=== PATIENT | female | born 1935 | race African-American/Black ===

== ENCOUNTER → 2017-05-07 19:06 | Outpatient (CLI) | payer MEDICARE ==
[2011-03-14 18:30] VITALS: BMI 38.5
== END | disposition home or self-care (01) ==
LOC: D.SLEEP 19:06
DX: G47.33 Obstructive sleep apnea (adult) (pediatric) (principal)

== ENCOUNTER 2017-06-03 04:58 | Observation (INO) | payer MEDICARE ==
[~2017-06-03] VITALS: Ht 167.6 cm; Wt 108.9 kg
--- NOTE | ~2017-06-03 | HEMODYNAMI ---
PATIENT:ZOHREH DOE MEDICAL RECORD: [id number] : 39 LOCATION:[facility] D.2114 [facility] [id number] ADMISSION DATE: 06/03/17 Generatedon:06/03/201710:25 Patient name: ZOHREH DOE Patient #: [id number] : 1935 Date of study: 06/03/2017 Page: Of Hemodynamic Procedure Report Patient Data Patient Demographics Procedure consent was obtained First Name: ZOHREH Gender: Female Last Name: NADER : 1935 [facility] Initial: WALESKA Age: 82 year(s) Patient #: [id number] Race: Black SSN: [id number] Additional ID: [id number] Contact details [address]: [address] [place] [address] State: [place] City: [place] Zip code: [address] Past Medical History Allergies Allergen Reaction Date Comments Reported Other allergy 06/03/2017 penicillin, codeine, aspirin Admission Admission Data Admission Date: 06/03/2017 Admission Time: 6:30 Arrival Date: 06/03/2017 Arrival Time: 6:30 Admit Source: Other Insurance Payor: Medicare Room #: D.2114 Height (in.): 65.98 BSA: 2.09 (m2) Height (cm.): 167.6 BMI: 35.85 (kg/m2) Weight (lbs.): 222.01 Weight (kg.): 100.7 Lab Results Lab Result Date: 06/03/2017 Lab Result Time: 0:00 Biochemistry Name Units Result Min Max BUN mg/dl 19 --(----)*- 7 18 Creatinine mg/dl 0.9 --(-*--)-- 0.6 1.3 CBC Name Units Result Min Max Hemoglobin g/dl 13.8 --(*---)-- 13.5 17.5 Procedure Procedure Types Cath Procedure Diagnostic Procedure LHC [facility] w/Coronaries PCI Procedure Coronary Stent Initial Miscellaneous Procedures Moderate Sedation up to 15 minutes Procedure Description Procedure Date Procedure Date: 06/03/2017 Procedure Start Time: 10:06 Procedure End Time: 10:21 Procedure Staff Name Function Prasad Vargas MD Performing Physician Rosalind Marks RT Scrub Wilber Brown RN Nurse Sari Sierra RT Monitor Indication Angina Procedure Data Cath Procedure Fluoroscopy Diagnostic fluoroscopy Total fluoroscopy Time: 3.1 time: 3.1 min min Diagnostic fluoroscopy Total fluoroscopy dose: 642 dose: 642 mGy mGy Contrast Material Contrast Material Type Amount (ml) Isovue 300 90 Entry Location Entry Primary Successful Side Size Upsize Upsize Entry Closure Succes sful Closure Location (Fr) 1 (Fr) 2 (Fr) Remarks Device Remarks Femoral Right 5 Fr 6 Fr Exoseal artery Short Estimated blood loss: 10 ml Diagnostic catheters Device Type Used For End Catheter Placement Cordis 5Fr JL 4.0 Procedure Catheter (MP) Cordis 5Fr 3DRC Catheter Procedure (MP) Cordis 5Fr Pigtail Procedure Catheter (MP) Procedure Complications No complications Procedure Medications Medication Administration Route Dosage Oxygen NC 2 l/min Lidocaine 2% added to field 20 Heparin Flush Bag added to field 2 bags (1000units/500ml NS) 0.9% NaCl I.V. 100 ml/hr Fentanyl I.V. 50 mcg Versed I.V. 1 mg Fentanyl I.V. 50 mcg Versed I.V. 1 mg Heparin Bolus I.V. 4000 units Integrilin (Bolus I.V. 9 ml 2mg/ml) Integrilin (Bolus wasted 1 ml 2mg/ml) Plavix P.O. 600 mg Hemodynamics Rest BSA: 2.09 (m2) HGB: 13.8 (g/dl) O2 Consumption: Estimated: 188.73 (ml/min) O2 Co nsumption indexed: Estimated:90.3 (ml/min/m) Heart Rate: 71 (bpm) Pressure Samples Time Site Value (mmHg) Purpose Heart Use Rate(bpm) 10:11 LV 143/11,14 Snapshot 70 Gradients Valve Time Site Site Mean SEP/DFP Peak To Heart Use 1 2 (mmHg) (sec/min) Peak Rate (mmHg) (bpm) Aortic 10:12 LV AO 73 Snapshots Pre Cath Intra NCS Post Cath Vital Signs Time Heart Resp SPO2 NIBP (mmHg) Rhythm Pain Sedation Rate (ipm) (%) Status Level (bpm) 9:29:34 69 20 100 144/74(118) NSR 0 (11) 10(A) , No pain 9:33:59 71 20 99 150/77(123) NSR 0 (11) 10(A) , No pain 9:38:17 66 19 98 131/70(111) NSR 0 (11) 10(A) , No pain 9:42:33 67 17 97 129/68(101) NSR 0 (11) 10(A) , No pain 9:46:51 78 19 98 130/72(115) NSR 0 (11) 10(A) , No pain 9:51:11 66 19 98 130/66(105) NSR 0 (11) 10(A) , No pain 9:55:31 68 19 98 129/63(112) NSR 0 (11) 10(A) , No pain 9:59:49 69 17 98 126/71(106) NSR 0 (11) 10(A) , No pain 10:04:07 73 19 99 132/67(117) NSR 0 (11) 9(A) , No pain 10:08:25 67 19 99 122/67(105) NSR 0 (11) 9(A) , No pain 10:12:39 68 19 98 129/71(106) NSR 0 (11) 9(A) , No pain 10:16:53 69 16 97 118/64(97) NSR 0 (11) 9(A) , No pain 10:21:07 71 17 97 127/66(102) NSR 0 (11) 9(A) , No pain 10:23:47 69 16 96 116/65(102) NSR 0 (11) 9(A) , No pain Medications Time Medication Route Dose Verified Delivered Reason Notes Effectiveness by by 9:33:27 Oxygen NC 2 Prasad Buffie used for l/min 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 100 Prasad Buffie Per physician ml/hr [facility] M[facility] Brown RN, MD 10:03:51 Fentanyl I.V. 50 Prasad Merino for sedation mcg [facility] Moy Brown RN, MD 10:03:59 Versed I.V. 1 mg Prasad Gutiérrezie for sedation [facility] M[facility] Brown RN, MD 10:07:49 Fentanyl I.V. 50 Prasad Merino for sedation mcg [facility] Moy Brown RN, MD 10:07:52 Versed I.V. 1 mg Prasad Merino for sedation [facility] Brown RN, MD 10:12:25 Heparin Bolus I.V. 4000 Prasad Gutiérrezie for units [facility] Moy Brown RN anticoagulation 10:12:42 Integrilin I.V. 9 ml Prasad Gutiérrezie for (Bolus 2mg/ml) [facility] Brown RN antiplatelet therapy 10:20:01 Integrilin wasted 1 ml Prasad Gutiérrezie for (Bolus 2mg/ml) [facility] Brown RN antiplatelet MD therapy 10:21:06 Plavix P.O. 600 Prasad Merino for mg [facility] Moy Brown RN antiplatelet therapy Procedure Log Time Note 8:50:24 Wilber Brown RN sent for patient. Start room use. 8:55:06 Informed consent obtained and on chart 8:55:19 Arrival Date: 06/03/2017 6:30:00 AM 8:55:26 Insurance Payor : Medicare 8:55:27 Admit Source: Other 8:56:31 Lab Result : BUN 19 mg/dl 8:56:31 Lab Result : Hemoglobin 13.8 g/dl 8:56:31 Lab Result : Creatinine 0.9 mg/dl 8:56:37 Diagnostic Cath Status : Elective 8:57:19 Indication : Angina 8:57:25 Time tracking: Regular hours 8:57:29 Plan of Care:Hemodynamics will remain stable., Cardiac rhythm will remain stable., Comfort level will be maintained., Respiratory function will remain adequate., Patient/ family verbilizes understanding of procedure., Procedure tolerated without complication., Recovers from procedure without complications.. 9:24:21 Patient received from Med II to CCL 2 Alert and oriented. Tansferred to table in Supine position. 9:24:22 Warm blankets applied, and mike hugger turned on for patient comfort. 9:24:23 Correct patient and procedure confirmed by team. 9:24:24 ECG and BP/O2 sat monitors applied to patient. 9:24:25 Vital chart was started 9:24:31 Baseline sample Acquired. 9:24:37 Rhythm: sinus rhythm 9:24:39 Full Disclosure recording started 9:24:44 H&P Date Dictated: 06/03/2017 New H&P dictated by physician.. 9:24:46 Pre-procedure instructions explained to patient. 9:24:47 Pre-op teaching completed and patient verbalized understanding. 9:24:49 Family in waiting room. 9:24:51 Patient NPO since Midnight. 9:25:16 Patient allergic to Other allergypenicillin, codeine, aspirin 9:25:19 Is the patient allergic to Iodine/contrast media? No. 9:25:21 Was the patient premedicated? No 9:25:22 Is patient on blood thinner?No 9:25:23 Patient diabetic? Yes. 9:25:24 If diabetic: On Metformin? Yes 9:25:25 If on Metformin: Last Dose? 06/03/2017 9:25:31 Patient not . Patient is over age 55. 9:25:33 Previous problem with sedation/anesthesia? No ? 9:25:35 Snore? Yes 9:25:36 Sleep apnea? No 9:25:37 Deviated septum? No 9:25:38 Opens mouth fully? Yes 9:25:38 Sticks out tongue? Yes 9:25:42 Airway obstruction? Yes copd 9:25:45 Dentures? No ? 9:25:49 Pre procedure: right dorsailis pedis pulse 1+ Palpable, but thready & weak; easily obliterated 9:25:51 Pre procedure: left dorsailis pedis pulse 1+ Palpable, but thready & weak; easily obliterated 9:25:53 Patient pain scale 0/10 ?. 9:25:58 IV patent on arrival in right hand with 0.9% NaCl at O. 9:26:01 Lab results completed and on chart. 9:26:04 Right groin area was prepped with chlora-prep and draped in sterile fashion 9:26:05 Alarms reviewed by R. N. 9:26:05 Sharps counted by scrub and verified by R.N. 9:31:36 Baseline sample Acquired. 9:32:01 Physician paged 9:33:27 Oxygen 2 l/min NC was administered by Wilber Brown RN; used for procedure; 9:33:34 Lidocaine 2% 20ml vial added to field was administered by Prasad Vargas MD; for local anesthetic; 9:33:40 Heparin Flush Bag (1000units/500ml NS) 2 bags added to field was administered by Prasad Vargas MD; used for procedure; 9:33:50 0.9% NaCl 100 ml/hr I.V. was administered by Wilber Brown RN; Per physician; 9:42:52 Procedure type changed to Cath procedure, Diagnostic procedure, LHC, LHC w/Coronaries, PCI procedure, Coronary Stent Initial, Miscellaneous Procedures, Moderate Sedation up to 15 minutes 9:43:11 Patient Height : 167.6 cm 9:43:31 Patient Weight : 100.7 kg 9:46:58 Zero performed for pressure channel P1 9:47:04 Zero performed for pressure channel P1 9:47:18 Zero performed for pressure channel P1 10:03:27 Physician arrived 10:03:28 --------ALL STOP TIME OUT------ 10:03:28 Final Timeout: patient, procedure, and site verified with staff and physician. All members of the team are in agreement. 10:03:31 Right groin site verified by team. 10:03:36 Sedation plan: IV Moderate Sedation Versed, Fentanyl 10:03:44 Physical assessment completed. ASA score P 2 - A patient with mild systemic disease as per Prasad Vargas MD. 10:03:51 Fentanyl 50 mcg I.V. was administered by Wilber Brown RN; for sedation; 10:03:59 Versed 1 mg I.V. was administered by Wilber Brown RN; for sedation; 10:04:30 Use device set Femoral Dx 10:04:32 Acist Syringe opened to sterile field. 10:04:32 Bag Decanter opened to sterile field. 10:04:33 Medline Cath Pack opened to sterile field. 10:04:33 Terumo 5Fr [place] Sheath opened to sterile field. 10:04:33 St Adolfo 260cm J .035 wire opened to sterile field. 10:04:35 Acist Hand Control opened to sterile field. 10:04:35 Acist Manifold opened to sterile field. 10:04:36 Diagnostic Infinity 5Fr Multipack catheter opened to sterile field. 10:04:36 Tegaderm 4 x 4 opened to sterile field. 10:05:53 Procedure started. 10:06:02 Local anesthetic to right femoral artery with Lidocaine 2% by Prasad Vargas MD.INITIAL ACCESS ONLY 10:06:11 A 5 Fr sheath was inserted into the Right Femoral artery 10:07:39 A Cordis 5Fr JL 4.0 Catheter (MP) was advanced over the wire and used for Procedure. 10:07:44 LCA angiography performed. 10:07:49 Fentanyl 50 mcg I.V. was administered by Wilber Brown RN; for sedation; 10:07:52 Versed 1 mg I.V. was administered by Wilber Brown RN; for sedation; 10:09:38 Catheter removed. 10:09:45 A Cordis 5Fr 3DRC Catheter (MP) was advanced over the wire and used for Procedure. 10:11:00 RCA angiography performed. 10:11:04 Catheter removed. 10:11:11 A Cordis 5Fr Pigtail Catheter (MP) was advanced over the wire and used for Procedure. 10:12:05 Catheter removed. 10:12:10 EF : 55 % 10:12:25 Heparin Bolus 4000 units I.V. was administered by Wilber Brown RN; for anticoagulation; 10:12:35 Sheath upsized to a 6 Fr Short. 10:12:42 Integrilin (Bolus 2mg/ml) 9 ml I.V. was administered by Wilber Brown RN; for antiplatelet therapy; 10:12:48 6 Fr JL 4 guide catheter was inserted over the wire 10:12:52 ana wire advanced. 10:12:54 Terumo 6Fr [place] Sheath opened to sterile field. 10:13:00 Skinner Combined Locks 300cm 0.014 guide wire opened to sterile field. 10:13:01 LIA BasixCompak Inflation Kit opened to sterile field. 10:13:37 Medtronic Launcher 6Fr JL 4.0 SH guide catheter opened to sterile field. 10:13:45 Wire advanced across lesion. 10:13:54 Study PCI Site: [place] mLAD has 80% stenosis. 10:17:48 Inflation Number: 1 A Juan OTW 3.0 x 15 stent was prepped and advanced across the Mid LAD. The stent was deployed at 14 ELIZABETH for 0:29 (min:sec). 10:19:00 Cordis 6Fr Exoseal opened to sterile field. 10:19:36 Wire removed. 10:19:37 Guide catheter removed. 10:19:47 Sheath removed intact; hemostasis achieved with Exoseal to the Right Femoral artery. 10:19:49 Procedure ended.(Physican Out) 10:20:01 Integrilin (Bolus 2mg/ml) 1 ml wasted was administered by Wilber Brown RN; for antiplatelet therapy; 10:20:01 Fluoroscopy time 03.10 minutes. 10:20:07 Flurop Dose total: 642 10:20:07 Fluoroscopy dose: 642 mGy 10:20:13 Contrast amount:Isovue 300 90ml. 10:20:14 Sharps counted by scrub and verified by R.N. 10:20:17 Insertion/operative site no bleeding no hematoma. 10:20:21 Post right femoral artery:stable 10:20:24 Post Procedure Pulses reassessed and unchanged 10:20:29 Post-procedure physical assessment completed. ASA score P 2 - A patient with mild systemic disease as per Prasad Vargas MD. 10:20:33 Post procedure rhythm: unchanged. 10:20:36 Estimated blood loss: 10 ml 10:20:38 Post procedure instruction explained to patient.Patient verbalizes understanding. 10:20:46 Procedure and supply charges have been captured, reviewed, submitted and are correct. 10:21:06 Plavix 600 mg P.O. was administered by Wilber Brown RN; for antiplatelet therapy; 10:21:08 Procedure Complication : No complications 10:21:11 Vital chart was stopped 10:21:12 See physician's report for complete and final results. 10:21:14 Report given to Pre/Post Procedure Room. 10:21:19 Patient transfered to [facility] with Bed. 10:21:22 Procedure ended. 10:21:22 Full Disclosure recording stopped 10:21:26 End room use (Document Last) 10:21:38 ACC-PCI Only Patient was given prescriptions, or instructed by Prasad Vargas MD to start/continue the following medications upon discharge: Plavix Intervention Summary Intervention Notes Time ActionType Lesion and Equipment Action# Pressure Duration Attributes Used 10:17:48 Place stent Mid LAD [place] OTW 1 14 00:29 3.0 x 15 stent Device Usage Item Name Manufacture Quantity Catalog Hospital Part Current Minimal Lot# / Number Charge Number Stock Stock Serial# Code Acist Acist 1 07441 987275 684628 631755 20 Syringe Medical Systems Inc Bag Microtek 1 2002S 252445 83112 166781 5 Decanter Medical Inc. Medline Cardinal 1 [id number] 581424 44528 817572 5 Cath Pack Health Terumo 5Fr Terumo 1 [id number] 632768 875623 977356 [address] Adolfo 1 556009 115773 191084 198008 30 260cm J .035 wire Acist Hand Acist 1 70497 744533 467032 760664 5 Control Medical Systems Inc Acist Acist 1 55500 273645 959943 549282 5 Manifold Medical Systems Inc Diagnostic Cardinal 1 BP3346 592121 10603 186762 30 Infinity Health 5Fr Multipack catheter Tegaderm 4 3M 1 1626W 174825 677549 466825 5 x 4 Cordis 5Fr Cardinal 1 899813 5 JL 4.0 Health Catheter (MP) Cordis 5Fr Cardinal 1 703957 5 3DRC Health Catheter (MP) Cordis 5Fr Cardinal 1 713011 5 Pigtail Health Catheter (MP) Terumo 6Fr Terumo 1 [id number] 145981 715757 959444 40 [place] Sheath Skinner Skinner 1 [id number] 003560 344183 898041 1 Combined Locks Vascular 300cm 0.014 guide wire [facility] 1 [id number] 149881 351077 293481 15 [facility] Medical Inflation Kit Medtronic Medtronic 1 [id number] 259345 40774 308098 1 Launcher 6Fr JL 4.0 SH guide catheter [place] OTW Medtronic 1 [id number] 858092 747871 758212 5 [id number] 3.0 x 15 stent Cordis 6Fr Cardinal 1 EX600 578100 863362 641173 10 [facility] Docitt Signature Audit [place] Stage Time Signature Unsigned Intra-Procedure 06/03/2017 Sari Sierra 10:24:57 AM RT(R) Signatures Monitor : Sari Sierra Signature : RT Date : Time : [place] [id number] [place] [address]
[2017-06-03 05:37] LABS: BASOPHILS 0.3 % (0-2); EOSINOPHILS 1.2 % (0-7); HEMATOCRIT 41.7 % (36.0-48.0); HEMOGLOBIN 13.8 g/dL (12-16); IMMATURE GRANULOCYTES 0.1 % (0-5); MCH 31.6 pg (26.0-34.0); MCHC 33.1 g/dL (31.0-37.0); MCV 95.4 fL (80.0-100.0); MONOCYTES 7.6 % (2-11); NEUTROPHILS 62.8 % (40-80); PLATELET COUNT 238 10x3/uL (130-400); RBC 4.37 10x6/uL (4.00-5.40); RDW 14.7 % (11.5-14.5); WBC 7.5 10x3/uL (4.8-10.8)
[2017-06-03 05:58] LABS: ALBUMIN 3.2 g/dL (3.4-5.0); ALKALINE PHOSPHATASE 75 U/L (46-116); ALT (SGPT) 15 U/L (10-68); CALC OSMOLALITY 282 mosm/kg (275-300); CALCIUM 9.9 mg/dL (8.5-10.1); CARBON DIOXIDE 29.9 mmol/L (21.0-32.0); CHLORIDE - SERUM 102 mmol/L (98-107); CREATININE - SERUM 0.9 mg/dL (0.6-1.3); GLUCOSE 131 mg/dL (74-106); POTASSIUM - SERUM 4.1 mmol/L (3.5-5.1); PROTEIN - SERUM 7.2 g/dL (6.4-8.2); SODIUM 140 mmol/L (136-145); UREA NITROGEN 19 mg/dL (7-18); eGFR NON AFRICAN AMERICAN 64 mL/min (90-120)
[2017-06-03 06:09] LABS: CKMB 0.2 U/L (0.0-3.6); CREATINE KINASE 33 UL (21-215); TROPONIN-I < 0.017 ng/mL (0.000-0.060)
--- NOTE | 2017-06-03 07:07 | NUR ---
TRANSFER FROM ER BY W/C. GIDEONINTED TO ROOM. CALL LIGHT IN REACH. WILL CONT. PLAN OF CARE.
[2017-06-03] MEDS ORDERED: ASCORBIC ACID500 MG PO (07:56)
[2017-06-03] MEDS ORDERED: MAXZIDE 75/501 TAB PO (07:57)
[2017-06-03] MEDS ORDERED: VITAMIN D10000 UNI1 PO (07:57)
[2017-06-03] MEDS ORDERED: CALAN SR120 MG PO (07:58)
[2017-06-03] MEDS ORDERED: GLUCOPHAGE1000 MG PO (07:58)
[2017-06-03] MEDS ORDERED: METOPROLOL TART50 MG PO (07:59)
[2017-06-03] MEDS ORDERED: PEPCID20 MG PO (07:59)
[2017-06-03] MEDS ORDERED: GLIPIZIDE10 MG PO (07:59)
[2017-06-03] MEDS ORDERED: ZOCOR40 MG PO (07:59)
[2017-06-03 08:00] VITALS: BP 142/60
[2017-06-03] MEDS ORDERED: CALCIUM 600+D T1 TA1 PO (08:00)
[2017-06-03] MEDS ORDERED: VENTOLIN HFA18 GM INH (08:02)
[2017-06-03] MEDS ORDERED: ALBUTEROL2.5 MG/3 M INH (08:05)
[2017-06-03 08:07] VITALS: Ht 167.6 cm; Wt 108.9 kg
--- NOTE | 2017-06-03 09:20 | NUR ---
CONSENTS SIGNED. PRE-OPS GIVEN. 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
--- NOTE | 2017-06-03 10:54 | NUR ---
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 VS WNL. RIGHT GROIN STABE WITHOUT BLEEDING OR HEMATOMA NOTED. WILL ONITOR.
[2017-06-03 12:00] VITALS: BP 151/70
--- NOTE | 2017-06-03 14:43 | NUR ---
BED REST UP. GROIN STABLE.
[2017-06-03 16:00] VITALS: BP 110/51
[2017-06-03 16:28] LABS: CKMB 0.1 U/L (0.0-3.6); CREATINE KINASE 29 UL (21-215); TROPONIN-I < 0.017 ng/mL (0.000-0.060)
--- NOTE | 2017-06-03 19:02 | NUR ---
RECEIVED REPORT AND ASSUMED PT CARE FROM DAY SHIFT NURSE @ THIS TIME
[2017-06-03 20:08] VITALS: BP 146/58
[2017-06-04 01:09] VITALS: BP 139/55
[2017-06-04 04:00] VITALS: BP 125/53
[2017-06-04 08:00] VITALS: BP 124/78
[2017-06-04] MEDS ORDERED: PLAVIX75 MG PO (08:03)
[2017-06-04] MEDS ORDERED: BAYER CHEWABLE81 MG PO (08:05)
--- NOTE | 2017-06-04 09:56 | NUR ---
IV AND TELEMETRY DCD. DC PLANS GIVEN. UNDERSTANDING VOICED. ESCORTED TO CAR BY W/C.
--- NOTE | 2017-06-04 14:18 | CN ---
PATIENT NAME:ZOHREH DOE MEDICAL RECORD: [id number] : 39 LOCATION:D. D.2114 ADMIT DATE: 06/03/17 ACCOUNT: [id number] CONSULTING PHYSICIAN: SUSANA STEELE MD REFERRING PHYSICIAN: VIPIN PLAZA MD DATE OF CONSULTATION: 06/03/2017 HISTORY OF PRESENT ILLNESS: An 82-year-old female with a known history of coronary artery disease, had a history of hypertension, dyslipidemia, admitted with chest pain radiating to the throat, some nausea onset nocturnally, tried Gaviscon without relief enzymes negative. At this point, we are asked to see her concerning her cardiovascular status. PAST MEDICAL HISTORY: Includes: 1. History of hypertension. 2. Hyperlipidemia. 3. Diabetes mellitus. 4. Gastroesophageal reflux disease. 5. Osteoarthritis, status post knee replacement. ALLERGIES: PENICILLIN, CODEINE AND ASPIRIN. MEDICATIONS: Typically include metoprolol 50 b.i.d., simvastatin 40 q. day, verapamil 120 q. day, Maxzide 75/50 q. day, Pepcid 20 b.i.d., glipizide 10 b.i.d., metformin 1 g b.i.d. SOCIAL HISTORY: Lives here in [place]. She is a nonsmoker, nondrinker. She takes care of her ADLs. No set exercise programs since her knee replacement. REVIEW OF SYSTEMS: The patient reports easy bruising but reports no swollen glands. The patient reports no fever, no night sweats, no significant weight gain, no significant weight loss. No significant exercise tolerance. The patient reports no dry eyes, no irritation, no vision change. Patient reports no difficulty hearing and no ear pain. Patient reports no frequent nose bleeds or nose and sinus problems. Patient reports on arm pain on exertion. No shortness of breath while lying down. No history of heart murmur. Patient reports no cough, no wheezing or coughing up blood. Patient reports no abdominal pain, no vomiting. Normal appetite. No diarrhea and not vomiting blood. No nausea and no constipation. Patient reports no incontinence. No difficulty urinating. No hematuria. No increased frequency. Patient reports no muscle aches. No weakness, no arthralgias, no back pain. No swelling of the extremities. Patient reports no abnormal mole, no jaundice, no rashes. Reports no loss of consciousness. No weakness and no numbness. No seizures, dizziness, or headaches. The patient reports no depression, no sleep disturbance, feeling safe in a relationship and no alcohol abuse. Patient reports on fatigue. Reports no runny nose or sinus pressure. No itching, no hives, and no frequent sneezing. PHYSICAL EXAMINATION: GENERAL: Pleasant female, in no acute distress. VITAL SIGNS: 142/60, pulse 70 and regular. HEENT: Normocephalic, atraumatic. NECK: No JVD or bruit. HEART: Regular. CONSULT REPORT [id number] ZOHREH DOE LUNGS: Lung johnson clear. ABDOMEN: Soft and nontender. EXTREMITIES: Pulse well preserved, 2+ with no edema. NEUROLOGIC: Grossly intact. IMPRESSION: Acute coronary syndrome, unresponsive to Gaviscon. We will plan for diagnostic angiography, intervention based on above. TRANSINT:[id number] Voice Confirmation ID: [id number] DOCUMENT ID: [id number] SUASNA STEELE MD at 1418 CC: [id number] DICTATION DATE: 06/03/17845 PLUMBING ASSEMBLER: 06/03/17 1255 DIS IN 06/04/17 [facility] [address] [place] [address]
--- NOTE | 2017-06-04 14:18 | OP ---
PATIENT NAME: ZOHREH DOE MEDICAL RECORD: [id number] :39 LOCATION:D.M2 D.2114 ADMISSION DATE:06/03/17 SURGEON: SUSANA STEELE MD DATE OF OPERATION: 06/03/2017 PROCEDURE: Left heart catheterization, selective coronary angiography, right femoral artery approach. CATHETERS: A 5-Omani sheath, 5/4 left and right René, 5/4 pig. The procedure was well tolerated and the patient returned to the gil. Sheath was removed. ExoSeal device placed. FINDINGS: Left ventriculography in 30-degree CRUZ view: Normal wall motion, normal systolic function. CORONARY ANATOMY. LEFT MAIN: Left main is free of disease. LAD: Has a tight 80% stenosis, takeoff of the first diagonal. CIRCUMFLEX: Circumflex is a large vessel, free of disease. RIGHT CORONARY ARTERY: Again, is codominant system, large right, free of disease. IMPRESSION: Single-vessel disease involving left anterior descending. PLAN: Intervention of this vessel momentarily. DESCRIPTION OF PROCEDURE: A 5-Omani sheath was changed for a 6-Omani sheath. A JL4 guiding catheter provided excellent guide catheter support. A 300 cm Engelhard XT wire was placed across the occluded LAD down to distal portion of this vessel. It was followed by a 3.0 x 15 mm Omniflex drug-eluting stent up to 14 atmospheres. Final angiography shows excellent resolution of 80% stenosis, no significant residual. MATT flow was 3 throughout the procedure. Plavix was loaded in the lab. Sheath closed with ExoSeal device. TRANSINT:[id number] Voice Confirmation ID: [id number] DOCUMENT ID: [id number] SUSANA STEELE MD at 1418 CC: [id number] DICTATION DATE: 06/03/17 1025 DISPLAY DEPARTMENT MANAGER: 06/03/17 1608 DIS IN 06/04/17 [place] [id number] [place] [address]
== END 2017-06-04 09:57 | disposition home or self-care (01) ==
LOC: D.ER 04:58 → OBSVTIME 06:30 → D.M2 06:30
PROVIDERS: Emergency Medicine; ADMIT Family Medicine
DX: I25.110 Atherosclerotic heart disease of native coronary artery with unstable angina pectoris (principal); I10 Essential (primary) hypertension; E78.5 Hyperlipidemia, unspecified; E11.9 Type 2 diabetes mellitus without complications; K21.9 Gastro-esophageal reflux disease without esophagitis
CPT/HCPCS: 93458; C9600

== ENCOUNTER 2017-10-23 07:29 | Emergency (ER) | payer MEDICARE ==
[2017-06-03 08:07] VITALS: BMI 38.7
[~2017-10-23 07:29] MED LIST: ALBUTEROL2.5 MG/3 M INH; ASCORBIC ACID500 MG PO; BAYER CHEWABLE81 MG PO; CALAN SR120 MG PO; CALCIUM 600+D T1 TA1 PO; GLIPIZIDE10 MG PO; GLUCOPHAGE1000 MG PO; MAXZIDE 75/501 TAB PO; METOPROLOL TART50 MG PO; PEPCID20 MG PO; PLAVIX75 MG PO; VENTOLIN HFA18 GM INH; VITAMIN D10000 UNI1 PO; ZOCOR40 MG PO
[2017-10-23 08:17] LABS: BASOPHILS 0.1 % (0-2); EOSINOPHILS 1.9 % (0-7); HEMATOCRIT 33.4 % (36.0-48.0); HEMOGLOBIN 10.9 g/dL (12-16); IMMATURE GRANULOCYTES 0.1 % (0-5); LYMPHOCYTES 9.2 % (15-50); MCH 30.3 pg (26.0-34.0); MCHC 32.6 g/dL (31.0-37.0); MCV 92.8 fL (80.0-100.0); MEAN PLATELET VOLUME 9.1 fL (7.4-10.4); MONOCYTES 11.5 % (2-11); NEUTROPHILS 77.2 % (40-80); PLATELET COUNT 263 10x3/uL (130-400); RDW 15.8 % (11.5-14.5); WBC 8.5 10x3/uL (4.8-10.8)
[2017-10-23 08:24] LABS: ALBUMIN 2.9 g/dL (3.4-5.0); ANION GAP 14.1 mmol/L (8-16); BILIRUBIN - TOTAL 0.33 mg/dL (0.2-1.3); CALCIUM 9.5 mg/dL (8.5-10.1); CARBON DIOXIDE 26.3 mmol/L (21.0-32.0); CREATININE - SERUM 0.9 mg/dL (0.6-1.3); MAGNESIUM - SERUM 1.9 mg/dL (1.8-2.4); POTASSIUM - SERUM 4.4 mmol/L (3.5-5.1); PROTEIN - SERUM 6.9 g/dL (6.4-8.2)
== END 2017-10-23 09:20 | disposition home or self-care (01) ==
LOC: D.ER 07:29
PROVIDERS: Emergency Medicine
DX: B34.9 Viral infection, unspecified (principal); J11.1 Influenza due to unidentified influenza virus with other respiratory manifestations; D64.9 Anemia, unspecified

== ENCOUNTER 2019-09-09 13:02 | Outpatient (CLI) | payer MEDICARE ==
[2017-06-03 08:07] VITALS: BMI 38.7
--- NOTE | ~2019-09-09 | HEMODYNAMI ---
PATIENT:ZOHREH DOE MEDICAL RECORD: [id number] : 39 LOCATION:[facility] ADMISSION DATE: 09/09/19 Generatedon:09/09/201913:54 Patient name: ZOHREH DOE Patient #: [id number] : 1935 Date of study: 09/09/2019 Page: Of Hemodynamic Procedure Report Patient Data Patient Demographics Procedure consent was obtained First Name: ZOHREH Gender: Female Last Name: NADER : 1935 [facility] Initial: WALESKA Age: 84 year(s) Patient #: [id number] Race: Black SSN: [id number] Additional ID: [id number] Contact details [address]: [address] [place] [address] State: [place] City: [place] Zip code: [address] Past Medical History Allergies Allergen Reaction Date Comments Reported Other allergy 06/03/2017 penicillin, codeine, aspirin Other allergy 09/09/2019 codeine, pcn Admission Admission Data Admission Date: 09/09/2019 Admission Time: 13:02 Arrival Date: 09/09/2019 Arrival Time: 0:00 Admit Source: Other Insurance Payor: Medicaid, Medicare [facility] #: [id number] Height (in.): 66 BSA: 2.11 (m2) Height (cm.): 167.64 BMI: 36.48 (kg/m2) Weight (lbs.): 226 Weight (kg.): 102.51 Lab Results Lab Result Date: 09/09/2019 Lab Result Time: 0:00 Biochemistry Name Units Result Min Max BUN mg/dl 14 --(--*-)-- 7 18 Creatinine mg/dl 1 --(--*-)-- 0.6 1.3 eGFR ml/min 67.02611 *-(----)-- 90 120 AM Procedure Procedure Types Cath Procedure Diagnostic Procedure LHC LH w/Coronaries Procedure Description Procedure Date Procedure Date: 09/09/2019 Procedure Start Time: 13:40 Procedure End Time: 13:49 Procedure Staff Name Function Prasad Melendez MD Performing Physician Greg Pichardo RT Fiberglass Roller Jose Jensen RN Nurse Greg Pichardo RT Scrub Sari Sierra RT Monitor Procedure Data Cath Procedure Fluoroscopy Diagnostic fluoroscopy Total fluoroscopy Time: 0.9 time: 0.9 min min Diagnostic fluoroscopy Total fluoroscopy dose: 0.9 dose: 0.9 mGy mGy Contrast Material Contrast Material Type Amount (ml) Isovue 300 0 Entry Location Entry Primary Successful Side Size Upsize Upsize Entry Closure Succes sful Closure Location (Fr) 1 (Fr) 2 (Fr) Remarks Device Remarks Femoral Right 5 Fr Exoseal artery Estimated blood loss: 10 ml Diagnostic catheters Device Type Used For End Catheter Placement MULTIPACK JL 4.0 5Fr Procedure catheter MULTIPACK 3DRC 5Fr Procedure catheter MULTIPACK Pigtail 5 Fr Procedure catheter Procedure Complications No complications Procedure Medications Medication Administration Route Dosage 0.9% NaCl I.V. 100 ml/hr Oxygen etCO2 Nasal cannula 2 l/min Heparin Flush Bag added to field 2 bags (1000units/500ml NS) Lidocaine 2% added to field 20 Versed I.V. 0.5 mg Fentanyl I.V. 25 mcg Hemodynamics Rest BSA: 2.11 (m2) O2 Consumption: Estimated: 186.16 (ml/min) O2 Consumption indexed : Estimated:88.23 (ml/min/m) Heart Rate: 67 (bpm) Pressure Samples Time Site Value (mmHg) Purpose Heart Use Rate(bpm) 13:46 LV 164/9,13 Snapshot 69 Gradients Valve Time Site Site Mean SEP/DFP Peak To Heart Use 1 2 (mmHg) (sec/min) Peak Rate (mmHg) (bpm) Aortic 13:46 LV AO 67 Snapshots Pre Cath Intra NCS Post Cath Vital Signs Time Heart Resp SPO2 etCO2 NIBP (mmHg) Rhythm Pain Sedation Rate (ipm) (%) (mmHg) Status Level (bpm) 13:25:59 62 14 99 0 141/64(115) NSR 0 (11) 10(A) , No pain 13:30:21 61 21 99 0 136/66(110) NSR 0 (11) 10(A) , No pain 13:34:38 64 20 97 0 123/66(102) NSR 0 (11) 10(A) , No pain 13:38:58 61 20 97 41.2 129/64(104) NSR 0 (11) 10(A) , No pain 13:43:20 63 20 98 43.4 134/62(108) NSR 0 (11) 9(A) , No pain 13:47:44 67 20 98 44.2 139/65(106) NSR 0 (11) 9(A) , No pain Medications Time Medication Route Dose Verified Delivered Reason Notes Eff ectiveness by by 13:31:49 0.9% NaCl I.V. 100 Jose Jose Per ml/hr Camila Jensen physician RN RN 13:32:01 Oxygen etCO2 2 Jose Jose for low 02 Nasal l/min Lorigan Lorigan sats cannula RN RN 13:32:12 Heparin Flush added 2 Jose Jose used for Bag to bags Lorigan Lorigan procedure (1000units/500ml field RN RN NS) 13:32:23 Lidocaine 2% added 20ml Jose Jose for local to vial Lorigan Lorigan anesthetic field RN RN 13:40:37 Versed I.V. 0.5 Jose Jose for mg Lorigan Lorigan sedation RN RN 13:40:48 Fentanyl I.V. 25 Jose Jose for mcg Lorigan Lorigan sedation RN coal mill operator Log Time Note 13:20:26 Admit Source: Other 13:20:30 Arrival Date: 09/09/2019 12:00:00 AM 13:20:49 Insurance Payor : Medicare, Medicaid 13:20:55 Patient Height : 66 inches 13:21:01 Patient Weight : 226 lbs 13:23:13 Lab Result : BUN 14 mg/dl 13:23:13 Lab Result : eGFR AM 67.67808 ml/min 13:23:13 Lab Result : Creatinine 1 mg/dl 13:23:25 Diagnostic Cath Status : Elective 13:24:02 Greg LUGO(R) sent for patient. Start room use. 13:24:03 ACC Patient presents with Stable Angina CCS Anginal Class 2--Slight limitation of ordinary activity. 13:24:12 Procedure Status Elective Heart Cath (OP). 13:24:21 Time tracking: Regular hours (M-F 7:00 - 5:00) 13:24:27 Plan of Care:Hemodynamics will remain stable., Cardiac rhythm will remain stable., Comfort level will be maintained., Respiratory function will remain adequate., Patient/ family verbilizes understanding of procedure., Procedure tolerated without complication., Recovers from procedure without complications.. 13:24:34 Patient received from Pre/Post Procedure Room to CCL 1 Alert and oriented. Tansferred to table in Supine position. 13:24:37 Signed procedure consent form obtained from patient. 13:24:39 Warm blankets applied, and mike hugger turned on for patient comfort. 13:24:40 Correct patient and procedure confirmed by team. 13:24:41 ECG and BP/O2 sat monitors applied to patient. 13:24:43 Vital chart was started 13:24:47 Baseline sample Acquired. 13:24:53 Rhythm: sinus rhythm 13:24:57 Full Disclosure recording started 13::31 H&P Date Dictated: 08/28/2019 Within 30 days and on chart., H&P Addendum completed by physician on day of procedure. (MUST COMPLETE FOR ALL OUTPATIENTS). 13:26:34 Pre-procedure instructions explained to patient. 13:26:36 Family in waiting room. 13:26:58 Patient allergic to Other allergycodeine, pcn 13:27:05 Is the patient allergic to Iodine/contrast media? No. 13:27:07 Was the patient premedicated? Yes 13:27:33 Is patient on blood thinner?No 13:27:38 Patient diabetic? Yes. 13:27:39 If diabetic: On Metformin? Yes 13:27:41 If on Metformin: Last Dose? 09/09/2019 13:27:47 Snore? Yes 13:27:50 Sleep apnea? No 13:27:56 Dentures? Yes in tight 13:28:00 Patient pain scale 0/10 ?. 13:28:47 Stress Test: no; N/A ? 13:28:51 Right groin area was prepped with chlora-prep and draped in sterile fashion 13:28:53 Alarms reviewed by R. N. 13:28:54 Sharps counted by scrub and verified by R.N. 13:28:55 Physician paged 13:28:56 Physician arrived 13:31:06 2) 60-89 Mildly reduced kidney function, and other findings (as for stage 1) point to kidney disease. 13:31:49 0.9% NaCl 100 ml/hr I.V. was administered by Jose Jensen RN; Per physician; Verbal order read back and verified. 13:32:01 Oxygen 2 l/min etCO2 Nasal cannula was administered by Jose Jensen RN; for low 02 sats; Verbal order read back and verified. 13:32:12 Heparin Flush Bag (1000units/500ml NS) 2 bags added to field was administered by Jose Jensen RN; used for procedure; Verbal order read back and verified. 13:32:23 Lidocaine 2% 20ml vial added to field was administered by Jose Jensen RN; for local anesthetic; Verbal order read back and verified. 13:33:19 Use device set Femoral Dx 13:33:20 ACIST Syringe (89561) opened to sterile field. 13:33:21 Bag Decanter (2002S) opened to sterile field. 13:33:21 Medline Cath Pack ([id number]) opened to sterile field. 13:33:22 ACIST Hand Control (78424) opened to sterile field. 13:33:23 ACIST Manifold (30205) opened to sterile field. 13:33:24 DIAGNOSTIC Multipack 5Fr catheter set (MX0044) opened to sterile field. 13:33:27 SHEATH 5FR [place] (WRF724) opened to sterile field. 13:33:28 EMERALD Guide Wire (286-408) opened to sterile field. 13:39:25 --------ALL STOP TIME OUT------ 13:39:25 Final Timeout: patient, procedure, and site verified with staff and physician. All members of the team are in agreement. 13:39:28 Right groin site verified by team. 13:39:32 Fire Safety Assessment: A--An alcohol-based skin anteseptic being used preoperatively., C--Open oxygen or nitrous oxide is being used., D--An ESU, laser, or fiber-optic light is being used. 13:39:36 Physical assessment completed. ASA score P 3 - A patient with severe systemic disease as per Prasad Melendez MD. 13:39:40 Maximum allowable contrast dose (3.7 X eGFR X 0.75)188 ml. 13:39:45 Sedation plan: IV Moderate Sedation Medication:Versed, Fentanyl 13:40:05 Procedure started. 13:40:27 Local anesthetic to right femoral artery with Lidocaine 2% by Prasad Melendez MD.INITIAL ACCESS ONLY 13:40:36 A 5 Fr sheath was inserted into the Right Femoral artery 13:40:37 Versed 0.5 mg I.V. was administered by Jose eJnsen RN; for sedation; Verbal order read back and verified. 13:40:48 Fentanyl 25 mcg I.V. was administered by Jose Jensen RN; for sedation; Verbal order read back and verified. 13:42:02 A MULTIPACK JL 4.0 5Fr catheter was advanced over the wire and used for Procedure. 13:42:08 LCA angiography performed. 13:44:02 Catheter removed. 13:44:11 A MULTIPACK 3DRC 5Fr catheter was advanced over the wire and used for Procedure. 13:44:16 RCA angiography performed. 13:44:37 Catheter removed. 13:45:15 A MULTIPACK Pigtail 5 Fr catheter was advanced over the wire and used for Procedure. 13:45:23 Zero performed for pressure channel P1 13:45:36 LV angiography performed. 13:45:39 LV gram done using CRUZ 13:46:33 EF : 55 % 13:46:35 Catheter removed. 13:46:38 EXOSEAL 5Fr (EX500) opened to sterile field. 13:46:39 Tegaderm 4 x 4 (1626W) opened to sterile field. 13:46:58 Sheath removed intact; hemostasis achieved with Exoseal to the Right Femoral artery. 13:47:00 Procedure ended.(Physican Out) 13:47:17 Fluoroscopy time 00.90 minutes. 13:47:56 Fluoroscopy dose: 0.9 mGy 13:47:56 Flurop Dose total: 0.9 13:48:01 Dose Area Product 322 mGy/cm. 13:48:16 Contrast amount:Isovue 300 0ml. 13:48:19 Maximum allowable dose exceeded? No. 13:48:21 Sharps counted by scrub and verified by R.N. 13:48:23 Insertion/operative site no bleeding no hematoma. 13:48:31 Post-op/insertion site Right Femoral artery dressed using a 4 x 4 and Tegaderm. 13:48:35 Post right femoral artery:stable 13:48:37 Post Procedure Pulses reassessed and unchanged 13:48:42 Post-procedure physical assessment completed. ASA score P 2 - A patient with mild systemic disease as per Prasad Melendez MD. 13:48:45 Post procedure rhythm: unchanged. 13:48:49 Estimated blood loss: 10 ml 13:48:51 Post procedure instruction explained to patient.Patient verbalizes understanding. 13:48:57 Procedure and supply charges have been captured, reviewed, submitted and are correct. 13:49:20 Procedure Complication : No complications 13:49:23 Vital chart was stopped 13:49:25 [facility] Findings: mild to moderate CAD (<70%) 13:49:30 Operative report dictated upon procedure completion. 13:49:31 See physician's report for complete and final results. 13:49:33 Report given to Pre/Post Procedure Room. 13:49:37 Patient transfered to Pre/Post Procedure Room with Stretcher. 13:49:40 Procedure ended. 13:49:40 Full Disclosure recording stopped 13:49:45 End room use (Document Last) 13:50:47 End room use (Document Last) 13:51:12 End room use (Document Last) Device Usage Item Name Manufacture Quantity Catalog Hospital Part Current Minimal L ot# / Number Charge Number Stock Stock Serial# Code ACIST Acist 1 74814 373298 659833 633204 20 Syringe Medical (63217) Systems Inc Bag Microtek 1 776827 45613 187659 5 Decanter Medical Inc. () Medline Medline 1 [id number] 288720 69134 113066 5 Cath Pack ([id number]) ACIST Hand Acist 1 02050 387242 266296 655868 5 Control Medical (84915) Systems Inc ACIST Acist 1 42077 684246 641034 125819 5 Manifold Medical (11045) Systems Inc DIAGNOSTIC Cardinal 1 MG7823 674223 95490 097336 30 Multipack Health 5Fr catheter set (DU0905) SHEATH 5FR Terumo 1 JMY217 991855 499481 624908 5 [place] (BJT107) EMERALD Cardinal 1 502-455 839504 396560 520055 5 Guide Wire Health (502-664) MULTIPACK Cardinal 1 696721 5 JL 4.0 5Fr Health catheter MULTIPACK Cardinal 1 904972 5 3DRC 5Fr Health catheter MULTIPACK Cardinal 1 526490 5 Pigtail 5 Health Fr catheter EXOSEAL 5Fr Cardinal 1 EX500 279660 427919 864076 10 (EX500) Health Tegaderm 4 3M 1 1626W 767062 740295 671520 5 x 4 (1626W) Signature Audit [place] Stage Time Signature Unsigned Intra-Procedure 09/09/2019 Sari Sierra 1:50:47 PM RT(R) Intra-Procedure 09/09/2019 Jose 1:51:12 PM Camila BETH Intra-Procedure 09/09/2019 Prasad Crespo 1:54:36 PM Moy YA [facility] [address] [place] [address]
--- NOTE | ~2019-09-09 | OP ---
PATIENT NAME: ZOHREH DOE MEDICAL RECORD: [id number] :[birth year] LOCATION:D.CAT ADMISSION DATE: SURGEON: SUSANA STEELE MD DATE OF OPERATION: 09/09/2019 PROCEDURES: Left heart cath, selective coronary angiography, right femoral artery approach. CATHETERS: A 5-Croatian sheath, 5/4 left and right René, 5/4 pig. The procedure was well tolerated. The patient was returned to the gil. Sheath removed and ExoSeal device placed. FINDINGS: Left ventriculography in 30-degree CRUZ view: Normal wall motion, normal systolic function. CORONARY ANATOMY: LEFT MAIN: Left main is free of disease. LAD: Free of disease. The previously placed stent is widely patent. CIRCUMFLEX: Free of disease. RIGHT CORONARY ARTERY: Dominant artery, gives rise to PDA, free of disease. IMPRESSION: Widely patent stent, no progression of emmonak disease, LV function remains normal. TRANSINT:[id number] Voice Confirmation ID: [id number] DOCUMENT ID: [id number] SUSANA STEELE MD CC: [id number] DICTATION DATE: 09/09/19 1359 SOFTWARE ENGINEERING ANALYST: 09/09/19 1830 DEP CLI 09/09/19 [facility] [address] [place] [id number]
[2019-09-09 12:57] LABS: CALCIUM 10.1 mg/dL (8.5-10.1); CARBON DIOXIDE 27.9 mmol/L (21.0-32.0); CHOL - HDL RATIO 2.7 ratio (2.3-4.1); LDL-HDL RATIO 1.1 ratio (1.5-3.5)
[2019-09-09 13:00] LABS: POTASSIUM - SERUM 4.9 mmol/L (3.5-5.1)
[2019-09-09 13:09] LABS: HEMATOCRIT 39.8 % (36.0-48.0); HEMOGLOBIN 13.6 g/dL (12-16); LYMPHOCYTES 29.7 % (15-50); MCH 31.2 pg (26.0-34.0); MCHC 34.2 g/dL (31.0-37.0); MCV 91.3 fL (80.0-100.0); MEAN PLATELET VOLUME 9.4 fL (7.4-10.4); NEUTROPHILS 64.3 % (40-80); PLATELET COUNT 264 10x3/uL (130-400); RBC 4.36 10x6/uL (4.00-5.40); RDW 15.2 % (11.5-14.5); WBC 6.4 10x3/uL (4.8-10.8)
[2019-09-09] MEDS ORDERED: XALATAN 0.0052.5 ML EACH EYE (13:40)
[2019-09-09] MEDS ORDERED: OMEGA-3100 MG PO (13:40)
--- NOTE | 2019-09-09 14:04 | NUR ---
PT ARRIVED BY STRETCHER. PLACED ON MONITORS. ASSESSMENT COMPLETED. FAMILY AT BEDSIDE. DR. STEELE ROUNDED AND SPOKE WITH PT'S FAMILY.
--- NOTE | 2019-09-09 14:20 | NUR ---
RIGHT GROIN DRESSING C/D/I. NO S/S OF HEMATOMA NOTED. CALL LIGHT WITHIN REACH. FAMILY AT BEDSIDE. NO NEEDS AT THIS TIME. PT RESTING COMFORTABLY.
--- NOTE | 2019-09-09 14:50 | NUR ---
RIGHT GROIN DRESSING C/D/I. NO S/S OF HEMATOMA NOTED. CALL LIGHT WITHIN REACH. FAMILY AT BEDSIDE. VSS.
--- NOTE | 2019-09-09 15:30 | NUR ---
HEAD OF BED INC TO 30 DEGREES. TOLERATED WELL. VSS. RIGHT GROIN DRESSING C/D/I. NO S/S OF HEMATOMA NOTED. CALL LIGHT WITHIN REACH. PT DENIES NAUSEA/PAIN AT THIS TIME. SET UP WITH SANDWICH TRAY AND DRINK.
--- NOTE | 2019-09-09 15:45 | NUR ---
HEAD OF BED INC TO 30 DEGREES. RIGHT GROIN DRESSING C/D/I. NO S/S OF HEMATOMA NOTED. CALL LIGHT WITHIN REACH. FAMILY AT BEDSIDE. PT SET UP WITH DRINK AND SANDWICH TRAY. DENIES NAUSEA/PAIN AT THIS TIME.
--- NOTE | 2019-09-09 16:15 | NUR ---
PIV D/C'D WITH CATH TIP INTACT. TOLERATED WELL. RIGHT GROIN DRESSING C/D/I. NO S/S OF HEMATOMA NOTED. VSS. PT INSTRUCTED TO GET UP AND DRESSED. FAMILY AT BEDSIDE TO ASSIST. CALL LIGHT WITHIN REACH. PT INSTRUCTED TO CALL IF ASSISTANCE NEEDED.
--- NOTE | 2019-09-09 16:40 | NUR ---
DISCUSSED DISCHARGE INSTRUCTIONS WITH PT AND PT'S FAMILY. THEY VOICED UNDERSTANDING. PT AMUBLATED TO RESTROOM. VOIDED WITHOUT DIFFICULTY.
--- NOTE | 2019-09-09 16:45 | NUR ---
PT TAKEN OUT TO VEHICLE BY WHEELCHAIR. NO S/S OF DISTRESS NOTED. ALL BELONGINGS AND PAPERWORK IN HAND.
== END 2019-09-09 16:45 | disposition home or self-care (01) ==
LOC: D.CATH 13:02
PROVIDERS: ATTEND Internal Medicine Interventional Cardiology
DX: I25.119 Atherosclerotic heart disease of native coronary artery with unspecified angina pectoris (principal)

== ENCOUNTER → 2019-11-06 09:38 | Outpatient (CLI) | payer MEDICARE ==
[2017-06-03 08:07] VITALS: BMI 38.7
--- NOTE | ~2019-11-06 | EC ---
PATIENT:ZOHREH DOE DATE OF SERVICE: 11/06/19 SEX: F MEDICAL RECORD: [id number] DATE OF : [birth year] LOCATION:D.[facility] AGE OF PATIENT: 84 ADMISSION DATE: 11/06/19 REFERRING PHYSICIAN: INTERPRETING PHYSICIAN: SUSANA STEELE MD ECHOCARDIOGRAM REPORT ECHO CHARGES 4 ECHO COMPLETE Date: 11/06/19 CLINICAL DIAGNOSIS: ANGINA H/O CAD/HTN ECHOCARDIOGRAPHIC MEASUREMENTS (adult normal given) AC root (d.<3.7cm) 3.4 cm LV Septum d (<1.2 cm> 1.2 cm Valve Excursion 1.7 cm LV Septum (systole) 1.5 cm Left Atria (s.<4.0cm> 3.6 cm LVPW d(<1.2cm) 1.2 cm RV (d.<2.3cm) 2.7 cm LVPW (sytole) 1.8 cm LV diastole(<5.6CM) 4.8 cm MV E-F(>70mm/sec) cm LV systole 3.0 cm LVOT Diameter 2.0 cm MV exc.(>10mm) cm Est.ejection fraction (50-75%) % DOPPLER: LVIT cm/sec A 57.0 cm/sec E 43.0 cm/sec LA cm/sec RVSP 21.0 mmHg LVOT 98.0 cm/sec AOP1/2T m/s Asc. Ao 103 cm/sec RVOT 66.0 cm/sec RA cm/sec PA 89.0 cm/sec AV Gradient Peak 4.3 mmHg AV Mean 2.2 mmHg AV Area 2.8 cm MV Gradient Peak 4.3 mmHg MV Mean 1.4 mmHg MV Area cm COMMENTS: OP - HC Band Saw Operator: 1 VIVEK REMSEN Gas Pumper: 3 Dr. Vargas TAPE# PACS Pericardial Effusion N DATE OF SERVICE: Adequate 2D, color flow imaging, spectral Doppler, and M-Mode. Borderline LVH. LV internal dimensions are normal. Wall motion is normal. EF is greater than or equal to 55%. Aortic valve is tricuspid. No evidence of stenosis by Doppler interrogation. Left atrium is normal at 3.6 cm. Mitral valve shows no prolapse. Trace MR. Right-sided chambers grossly normal. Trace TR. ECHOCARDIOGRAM REPORT [id number] ZOHREH DOE TRANSINT:[id number] Voice Confirmation ID: [id number] DOCUMENT ID: [id number] SUSANA STEELE MD CC: [id number] DICTATION DATE: 11/09/19 1315 UTILITY WORKER PRODUCTION: 11/09/19 1528 [facility] CLI 11/06/19 [place] [id number] [place] [id number]
[~2019-11-06 09:38] MED LIST changes: +OMEGA-3100 MG PO; +XALATAN 0.0052.5 ML EACH EYE
== END | disposition home or self-care (01) ==
LOC: D.HCCECHO 09:38
PROVIDERS: ATTEND Internal Medicine Interventional Cardiology
DX: I25.10 Atherosclerotic heart disease of native coronary artery without angina pectoris (principal)

== ENCOUNTER 2020-03-10 10:30 | Outpatient (CLI) | payer MEDICARE ==
[2017-06-03 08:07] VITALS: BMI 38.7
== END 2020-03-10 11:00 | disposition home or self-care (01) ==
LOC: D.MAMMO 10:30
PROVIDERS: ATTEND Legal Medicine
DX: C50.411 Malignant neoplasm of upper-outer quadrant of right female breast (principal)

== ENCOUNTER 2020-03-20 11:53 | Inpatient (IN) | payer MEDICARE ==
[~2020-03-20] VITALS: Ht 167.6 cm; Wt 104.2 kg
[2020-03-20 11:58] VITALS: BP 168/51
[2020-03-20 12:33] LABS: BASOPHILS 0.2 % (0-2); EOSINOPHILS 3.9 % (0-7); HEMATOCRIT 42.3 % (36.0-48.0); HEMOGLOBIN 13.9 g/dL (12-16); IMMATURE GRANULOCYTES 0.3 % (0-5); LYMPHOCYTES 26.4 % (15-50); MCH 31.2 pg (26.0-34.0); MCHC 32.9 g/dL (31.0-37.0); MCV 95.1 fL (80.0-100.0); MEAN PLATELET VOLUME 9.5 fL (7.4-10.4); MONOCYTES 7.1 % (2-11); NEUTROPHILS 62.1 % (40-80); RBC 4.45 10x6/uL (4.00-5.40); RDW 14.9 % (11.5-14.5); WBC 5.9 10x3/uL (4.8-10.8)
[2020-03-20 12:36] LABS: PLATELET COUNT 200 10x3/uL (130-400)
[2020-03-20 12:49] LABS: CALC OSMOLALITY 275 mosm/kg (275-300); CALCIUM 9.9 mg/dL (8.5-10.1); CARBON DIOXIDE 28.2 mmol/L (21.0-32.0); CHLORIDE - SERUM 100 mmol/L (98-107); CREATININE - SERUM 1.2 mg/dL (0.6-1.3); POTASSIUM - SERUM 4.1 mmol/L (3.5-5.1); SODIUM 134 mmol/L (136-145); UREA NITROGEN 15 mg/dL (7-18); eGFR NON AFRICAN AMERICAN 45 mL/min (90-120)
[2020-03-20 12:50] LABS: GLUCOSE 217 mg/dL (74-106)
[2020-03-20 13:00] VITALS: BP 152/75
[2020-03-20 13:21] LABS: BILIRUBIN NEGATIVE (NEGATIVE); GLUCOSE NEGATIVE (NEGATIVE); KETONE NEGATIVE (NEGATIVE); NITRITE NEGATIVE (NEGATIVE); SPECIFIC GRAVITY 1.005 (1.005-1.020); UROBILINOGEN NORMAL (NORMAL)
[2020-03-20 13:47] LABS: ALBUMIN 3.4 g/dL (3.4-5.0); ALKALINE PHOSPHATASE 73 U/L (30-120); ALT (SGPT) 17 U/L (10-68); BILIRUBIN - TOTAL 0.21 mg/dL (0.2-1.3); CKMB 0.8 U/L (0.0-3.6); CREATINE KINASE 55 UL (21-215); MAGNESIUM - SERUM 1.8 mg/dL (1.8-2.4); PROTEIN - SERUM 7.8 g/dL (6.4-8.2); TROPONIN-I < 0.017 ng/mL (0.000-0.060)
[2020-03-20 14:08] LABS: THYROID STIMULATING HORMONE 1.79 uIU/mL (0.36-3.74)
--- NOTE | 2020-03-20 14:12 | NUR ---
ASSIST PT TO BEDSIDE COMMODE, SHE IS ABLE TO HELP. BACK TO BED WITHOUT INCODENT, PT IS MORE WITH IT, TALKING MORE .
--- NOTE | 2020-03-20 15:38 | NUR ---
RECEIVED PT FROM ER. PT IS AAO AND UP WITH ASSIST. FAMILY AT BEDSIDE. FALL PRECAUTIONS IN PLACE. CALL LIGHT W/I REACH. RR EVEN AND UNLABORED ON 2L 02. PIV SALINE LOCKED. NO S/S OF DISTRESS NOTED. PT DENIES ANY NEEDS AT THIS TIME. WILL CTM.
[2020-03-20 15:55] VITALS: BP 156/76; BMI 40.4
--- NOTE | 2020-03-20 19:41 | NUR ---
RECEIVED LAYING IN BED WITH EYES CLOSED. EASILY AROUSES WITH VERBAL STIMULI. O2@V 2 LITERS PER N/C IN PLACE. IV TO RT HAND SL. DSG CDI. LEFT ARM RESERVED D/T MASCETOMY TEN YEARS AGO PER PT. DTR AT BEDSIDE. DENIES ANY NEEDS AT THIS TIME.
[2020-03-20 20:00] VITALS: BP 109/52
[2020-03-21] VITALS: BP 104/42
[2020-03-21 04:00] VITALS: BP 110/57
[2020-03-21 07:02] LABS: ALBUMIN 3.2 g/dL (3.4-5.0); ALKALINE PHOSPHATASE 63 U/L (30-120); ALT (SGPT) 16 U/L (10-68); CALCIUM 9.1 mg/dL (8.5-10.1); CARBON DIOXIDE 31.6 mmol/L (21.0-32.0); CHLORIDE - SERUM 102 mmol/L (98-107); CKMB 0.8 U/L (0.0-3.6); CREATINE KINASE 40 UL (21-215); CREATININE - SERUM 1.1 mg/dL (0.6-1.3); PROTEIN - SERUM 6.4 g/dL (6.4-8.2); SODIUM 138 mmol/L (136-145); UREA NITROGEN 16 mg/dL (7-18); eGFR NON AFRICAN AMERICAN 50 mL/min (90-120)
[2020-03-21 07:03] LABS: CALC OSMOLALITY 278 mosm/kg (275-300); GLUCOSE 141 mg/dL (74-106); TROPONIN-I < 0.017 ng/mL (0.000-0.060)
[2020-03-21 07:47] LABS: BASOPHILS 0.3 % (0-2); EOSINOPHILS 3.5 % (0-7); HEMATOCRIT 39.6 % (36.0-48.0); HEMOGLOBIN 12.5 g/dL (12-16); IMMATURE GRANULOCYTES 0.1 % (0-5); LYMPHOCYTES 29.3 % (15-50); MCH 30.2 pg (26.0-34.0); MCHC 31.6 g/dL (31.0-37.0); MCV 95.7 fL (80.0-100.0); MEAN PLATELET VOLUME 9.4 fL (7.4-10.4); MONOCYTES 8.8 % (2-11); PLATELET COUNT 258 10x3/uL (130-400); RBC 4.14 10x6/uL (4.00-5.40); RDW 15.2 % (11.5-14.5); WBC 6.9 10x3/uL (4.8-10.8)
--- NOTE | 2020-03-21 09:25 | NUR ---
AM MEDS GIVEN AT THIS TIME. PT A/O X4, RESP EVEN AND NONLABORED ON 2L NC. RT HAND IV SL. HEART MONITOR SHOWING SR WITH RATE OF 64. PT TAKEN TO MRI AT TH IS TIME.
[2020-03-21 09:35] VITALS: BP 103/49
[2020-03-21 14:33] VITALS: BP 146/55
--- NOTE | 2020-03-21 19:00 | NUR ---
RECEIVED BEDSIDE REPORT. PATIENT IS ALERT AND ORIENTED, RESTING IN BED. RESPIRATIONS ARE EVEN AND UNLABORED. NO S/S OF DISTRESS. NO C/O PAIN. CALL LIGHT WITHIN REACH. DAUGHTER AT BEDSIDE. WILL CPOC.
[2020-03-21 19:01] VITALS: BP 133/61
[2020-03-21 20:00] VITALS: BP 147/55
[2020-03-22] VITALS: BP 137/61
[2020-03-22 04:00] VITALS: BP 136/74
[2020-03-22 09:24] VITALS: BP 132/62
--- NOTE | 2020-03-22 10:18 | NUR ---
DR. MANN IN PT'S ROOM AN DAUGHTER IS AT BEDSIDE.
--- NOTE | 2020-03-22 10:52 | NUR ---
I have reviewed this patient and I concur with the Shift Assessment completed by the Licensed Practical Nurse today this shift.
[2020-03-22 11:00] VITALS: BP 125/47
--- NOTE | 2020-03-22 13:00 | NUR ---
PT TOOK SHOWER WITH HELP OF DAUGHTER.
--- NOTE | 2020-03-22 13:09 | MORECARE ---
CASE MANAGEMENT DISCHARGE SUMMARY PATIENT: ZOHREH DOE UNIT: [id number] ADM DATE: 03/21/20 AGE: 85 : 37 SEX: F ROOM/BED: D.[facility] AUTHOR: HI MCQUEEN PHYSICIAN: REFERRING PHYSICIAN: VIPIN PLAAZ MD DATE OF SERVICE: 03/22/20 Discharge Plan Patient Name: [facility]OHREH DOE [facility] [facility] 1935 Planned Disposition: Home Anticipated Discharge Date: Discharge Date: Expected LOS: Initial Reviewer: [email or web address] Initial Review Date: 03/22/2020 Generated: 03/22/20 2:08 pm Comments DCP- Discharge Planning Updated by [email or web address]: Hannah Larson on 03/22/20 12:[address] CM received results of walk test. She is 98% on room air at rest and 99% on room air with exertion. Patient does not qualify for home oxygen. Coverage Notice Reviewer: [email or web address] - Hannah Larson Notice Issued Date-Time: 03/21/2020 8:55 Notice Type: Medicare Outpatient Observation Notice Notice Delivered To: Patient Relationship to Patient: Self Sound Recordist Name: Delivery Method: HAND - Hand Delivered Maris Days: Prior Verbal Notification: Recipient Understood Notice: Yes Recipient Signature: Yes Med Rec Note Co-signed by Attending: Coverage Notice Comment: HICKS explained, signed, given, copy placed in MR Patient Name: ZOHREH DOE Page [phone] at 1309 All edits/amendments must be made on the electronic document DICTATION DATE: 03/22/20 1308 MECHANICAL ENGINEERING OFFICER: MO[place] 03/22/20 1308 RPT#: [id number] DC DATE: STATUS: ADM IN [facility] [address] [place] [id number] END OF REPORT
--- NOTE | 2020-03-22 13:24 | NUR ---
CALLED AND SPOKE WITH MRI AND THEY STATED THE MACHINE IS DOWN AND MA[facility]IN[facility] IS WORKING ON IT NOW AND THEY HOPE IT WILL BE FIXED BY 1600 AND PT IS FRST ON THE LIST WHEN IT IS FIXED. I VERBALIZED UNDERSTANDING. WENT AND SPOKE WITH PT AND PT'S DAUGHTER ABOUT MY CONVERSATION WITH MRI AND WHAT THEY STATED TO ME AND THEY BOTH VERBALIZED UNDERSTANDING.
[2020-03-22 15:00] VITALS: BP 140/42
--- NOTE | 2020-03-22 15:03 | EC ---
PATIENT:ZOHREH DOE DATE OF SERVICE: 03/21/20 SEX: F MEDICAL RECORD: [id number] DATE OF : [birth year] LOCATION:D.M2 D.211 AGE OF PATIENT: 85 ADMISSION DATE: 03/21/20 REFERRING PHYSICIAN: INTERPRETING PHYSICIAN: SUSANA STEELE MD ECHOCARDIOGRAM REPORT ECHO CHARGES 4 ECHO COMPLETE Date: 03/21/20 CLINICAL DIAGNOSIS: TIA ECHOCARDIOGRAPHIC MEASUREMENTS (adult normal given) AC root (d.<3.7cm) 2.1 cm LV Septum d (<1.2 cm> 1.0 cm Valve Excursion 1.0 cm LV Septum (systole) 1.2 cm Left Atria (s.<4.0cm> 3.5 cm LVPW d(<1.2cm) 0.8 cm RV (d.<2.3cm) 2.6 cm LVPW (sytole) 1.1 cm LV diastole(<5.6CM) 4.6 cm MV E-F(>70mm/sec) cm LV systole 3.5 cm LVOT Diameter 1.5 cm MV exc.(>10mm) cm Est.ejection fraction (50-75%) % DOPPLER: LVIT cm/sec A 84 cm/sec E 63 cm/sec LA cm/sec RVSP 16.2 mmHg LVOT 95 cm/sec AOP1/2T m/s Asc. Ao 103 cm/sec RVOT 43 cm/sec RA cm/sec PA 52 cm/sec AV Gradient Peak 4.3 mmHg AV Mean 2.3 mmHg AV Area 1.7 cm MV Gradient Peak 3.6 mmHg MV Mean 1.3 mmHg MV Area cm COMMENTS: Rn Documentation: Elie DAVIS Trust Evaluation Supervisor: 3 Dr. Vargas TAPE# PACS Pericardial Effusion N DATE OF SERVICE: Adequate 2D, color flow imaging, spectral Doppler, and M-Mode No LVH. LV internal dimension is normal. Wall motion is normal. EF is greater than or equal to 55%. Aortic valve is tricuspid. No evidence of stenosis by Doppler interrogation. Left atrium is normal. Mitral valve shows no prolapse. Trace MR. Right-sided chambers are grossly normal. Trace TR. TRANSINT:[id number] Voice Confirmation ID: [id number] DOCUMENT ID: [id number] ECHOCARDIOGRAM REPORT [id number] ZOHREH DOE SUSANA STEELE MD at 1503 CC: [id number] DICTATION DATE: 03/22/20819 SERVICE CORRESPONDENT: 03/22/20 08 ADM IN [place] [id number] [place] [id number]
--- NOTE | 2020-03-22 17:04 | NUR ---
PT BROUGHT BACK FROM MRI VIA WC. MRI STATES RIHGT WRIST 22G IV BLEW. DC D RIGHT WRIST 22G IV WITH CATH INTACT. PT HAS NO IV AT THIS TIME AND IS NOT GETTINGANY MEDS IV. WILL SPEAK WITH MD TOMORROW ABOUT RESTARTING IV. PT AND FAMILY PREFERS NO IV UNLESS PT HAS TO HAVE IT. SCD'S PLACED BIALTERALLY ON PT'S LEGS.
--- NOTE | 2020-03-22 19:35 | NUR ---
RECEIVED BEDSIDE REPORT. PATIENT IS ALERT AND ORIENTED, RESTING COMFORTABLY IN BED. RESPIRATIONS ARE EVEN AND UNLABORED. NO S/S OF DISTRESS. NO C/O PAIN. CALL LIGHT WITHIN REACH. WILL CPOC.
[2020-03-22 20:00] VITALS: BP 126/45
[2020-03-23] VITALS: BP 125/56
[2020-03-23 04:00] VITALS: BP 134/68
[2020-03-23 09:41] VITALS: BP 134/62
[2020-03-23] MEDS ORDERED: CYANOCOBAL1000 MCG/4 IM (10:32)
--- NOTE | 2020-03-23 12:05 | NUR ---
I have reviewed this patient and I concur with the Shift Assessment completed by the Licensed Practical Nurse today this shift.
[2020-03-23 13:03] VITALS: BP 129/55
--- NOTE | 2020-03-23 14:50 | NUR ---
VASCULAR ACCESS NURSE INSERTED A 20G IV IN RIGHT WRIST.
--- NOTE | 2020-03-23 16:24 | NUR ---
PT'S DAUGGTER WANTING TO KNOW ABOUT TIME TOMORROW FOR SHUNT TO BE PLACED. OR CALLED AND THEY STATED THEY HAVE NOTHING DOWN. CALLED DR. MANN'S OFFICE AND SPOKE WITH ADRIEL AND SHE STATES DR. MANN HASN'T TALKED TO OR YET BUT PLANS ON IT AND IS WANTING TO DO IT TOMORROW. I VERBALIZED UNDRSTANDING.
[2020-03-23 16:37] VITALS: BP 124/55
[2020-03-23 20:00] VITALS: BP 137/56
[2020-03-24] VITALS (11 sets, daily range): BP systolic 116–164; BP diastolic 63–83
--- NOTE | 2020-03-24 04:37 | NUR ---
I have reviewed this patient and I concur with the Shift Assessment completed by the Licensed Practical Nurse today this shift.
--- NOTE | 2020-03-24 14:16 | NUR ---
DAUGHTER TAKEN TO ICU WAITING ROOM. BELONGINGS IN ROOM 2305.
--- NOTE | 2020-03-24 15:00 | NUR ---
PT RECEIVED. RECOVERY AT BEDSIDE. REPORT RECEIVED. VSS. FAMILY GIVEN UDPATE.
--- NOTE | 2020-03-24 19:32 | NUR ---
REPORT RECEIVED. RECEIVED PATIENT IN BED, AWAKE AND ALERT. ORIENTED X 4. SPEECH CLEAR AND APPROPRIATE. ASSESSMENT COMPLETED PER FLOW SHEET WITH NO ACUTE DISTRESS OBSERVED. MONITORS CONNECTED TO PATIENT WITH ALARMS SET. VSS. CALL LIGHT IN REACH AND ABLE TO UTILIZE TO MAKE NEEDS KNOWN.
--- NOTE | 2020-03-24 23:00 | NUR ---
REASSESSMENT COMPLETED PER FLOW SHEET WITH NO ACUTE DISTRESS OBSERVED. VSS. CALL LIGHT IN REACH
[2020-03-25] VITALS (22 sets, daily range): BP systolic 99–192; BP diastolic 49–95; Ht 167.6 cm; Wt 104.2 kg
--- NOTE | 2020-03-25 03:00 | NUR ---
REASSESSMENT COMPLETED PER FLOW SHEET WITH NO ACUTE DISTRESS OBSERVED. VSS. CALL LIGHT IN REACH
--- NOTE | 2020-03-25 12:13 | MORECARE ---
CASE MANAGEMENT DISCHARGE SUMMARY PATIENT: ZOHREH DOE UNIT: [id number] ADM DATE: 03/21/20 AGE: 85 : 37 SEX: F ROOM/BED: [facility] AUTHOR: HI MCQUEEN PHYSICIAN: REFERRING PHYSICIAN: VIPIN PLAZA MD DATE OF SERVICE: 03/25/20 Discharge Plan Patient Name: ZOHREH DOE Facility: [facility]:[place] : 1935 Planned Disposition: Home Anticipated Discharge Date: Discharge Date: Expected LOS: Initial Reviewer: [id number] Initial Review Date: 03/22/2020 Generated: 03/25/20 1:12 pm Comments DCP- Discharge Planning Updated by [id number]: Hannah Larson on 03/22/20 12:[address] CM received results of walk test. She is 98% on room air at rest and 99% on room air with exertion. Patient does not qualify for home oxygen. Coverage Notice Reviewer: [id number] - Hannah Larson Notice Issued Date-Time: 03/21/2020 8:55 Notice Type: Medicare Outpatient Observation Notice Notice Delivered To: Patient Relationship to Patient: Self Licensed Vocational Nurse Name: Delivery Method: HAND - Hand Delivered Maris Days: Prior Verbal Notification: Recipient Understood Notice: Yes Recipient Signature: Yes Med Rec Note Co-signed by Attending: Coverage Notice Comment: HICKS explained, signed, given, copy placed in MR Last DP export: 03/22/20 12:09 p Patient Name: ZOHREH DOE Page 12001 at 1213 All edits/amendments must be made on the electronic document DICTATION DATE: 03/25/20 121 IMPORT COORDINATOR: MODESTO 03/25/20 1212 RPT#: [id number] DC DATE: STATUS: ADM IN [place] [address] [place] [address] END OF REPORT
--- NOTE | 2020-03-25 12:24 | MORECARE ---
CASE MANAGEMENT DISCHARGE SUMMARY PATIENT: ZOHREH DOE UNIT: [id number] ADM DATE: 03/21/20 AGE: 85 : 37 SEX: F ROOM/BED: [facility] AUTHOR: CHARISSEDOC PHYSICIAN: REFERRING PHYSICIAN: VIPIN PLAZA MD DATE OF SERVICE: 03/25/20 Discharge Plan Patient Name: ZOHREH DOE Facility: [facility]:[place] : 1935 Planned Disposition: Home Anticipated Discharge Date: Discharge Date: Expected LOS: Initial Reviewer: [email or web address] Initial Review Date: 03/22/2020 Generated: 03/25/20 1:24 pm Comments DCP- Discharge Planning Updated by [email or web address]: Hannah Larson on 03/22/20 12:[address] CM received results of walk test. She is 98% on room air at rest and 99% on room air with exertion. Patient does not qualify for home oxygen. DCPIA - Discharge Planning Initial Assessment Updated by [email or web address]: Esthela Mercado on 03/25/20 12:23 pm * Is the patient Alert and Oriented? Yes * How many steps to enter\exit or inside your home? * PCP Hemanth * Pharmacy [facility] * Preadmission Environment Home with Family * ADLs Independent * Other Equipment ROLLATOR, NEBULIZER, BSC, SC * List name and contact numbers for known caregivers / representatives who currently or will assist patient after discharge: GITA CAST - DAUGHTER- [phone] CHICA PHELPS - DAUGHTER- [phone] * Verbal permission to speak to the caregivers and representatives has been obtained from the patient. Yes * Community resources currently utilized None * Additional services required to return to the preadmission environment? No * Can the patient safely return to the preadmission environment? Yes * Has this patient been hospitalized within the prior 30 days at any hospital? No Coverage Notice Reviewer: [id number] - Hannah Larson Notice Issued Date-Time: 03/21/2020 8:55 Notice Type: Medicare Outpatient Observation Notice Notice Delivered To: Patient Relationship to Patient: Self Lithographic Artist Name: Delivery Method: HAND - Hand Delivered Maris Days: Prior Verbal Notification: Recipient Understood Notice: Yes Recipient Signature: Yes Med Rec Note Co-signed by Attending: Coverage Notice Comment: HICKS explained, signed, given, copy placed in MR Last DP export: 03/25/20 11:13 a Patient Name: ZOHREH DOE Page 57820 at 1224 All edits/amendments must be made on the electronic document DICTATION DATE: 03/25/20 122 LASER BEAM COLOR SCANNER OPERATOR: MODESTO 03/25/20 1224 RPT#: [id number] DC DATE: STATUS: ADM IN [facility] [address] [place] [address] END OF REPORT
--- NOTE | 2020-03-25 12:41 | MORECARE ---
CASE MANAGEMENT DISCHARGE SUMMARY PATIENT: ZOHREH DOE UNIT: [id number] ADM DATE: 03/21/20 AGE: 85 : 37 SEX: F ROOM/BED: [facility] AUTHOR: CHARISSE,DOC PHYSICIAN: REFERRING PHYSICIAN: VIPIN PLAZA MD DATE OF SERVICE: 03/25/20 Discharge Plan Patient Name: ZOHREH DOE Facility: [facility]:[place] : 1935 Planned Disposition: Home Anticipated Discharge Date: Discharge Date: Expected LOS: Initial Reviewer: [email or web address] Initial Review Date: 03/22/2020 Generated: 03/25/20 1:40 pm Comments DCP- Discharge Planning Updated by [id number]: Esthela Mercado on 03/25/20 11:[address] Patient Name: ZOHREH DOE Admission Status: ER Accout number: [id number] Admission Date: 03-21-2020 : 1935 Admission Diagnosis:DISORIENTATION, UNSPECIFIED Attending: VIPIN PLAZA Current LOS: 4 Anticipated DC Date: Planned Disposition: Home Primary Insurance: MEDICARE A & B Discharge Planning Comments: CM met with patient to complete initial dc planning assessment. CM educated patient on the CM role and verbal consent given by patient to complete assessment. Patient lives at home with family. Patient is independent. At discharge patient plans to return home and feels this is a safe discharge. CM discussed availability of home health, rehab services, and medical equipment. CEASAR signed for No Preference on HH. Patient denied known discharge needs at this time. CM will continue to follow and will assist as needed with dc plans/needs. Biztalk Developer: Esthela Mercado DCP- Discharge Planning Updated by [email or web address]: Hannah Larson on 03/22/20 12:[address] CM received results of walk test. She is 98% on room air at rest and 99% on room air with exertion. Patient does not qualify for home oxygen. DCPIA - Discharge Planning Initial Assessment Updated by [email or web address]: Esthela Mercado on 03/25/20 12:23 pm * Is the patient Alert and Oriented? Yes * How many steps to enter\exit or inside your home? * PCP Hemanth * Pharmacy [facility] * Preadmission Environment Home with Family * ADLs Independent * Other Equipment ROLLATOR, NEBULIZER, BSC, SC * List name and contact numbers for known caregivers / representatives who currently or will assist patient after discharge: GITA CAST - DAUGHTER- [phone] CHICA PHELPS - DAUGHTER- [phone] * Verbal permission to speak to the caregivers and representatives has been obtained from the patient. Yes * Community resources currently utilized None * Additional services required to return to the preadmission environment? No * Can the patient safely return to the preadmission environment? Yes * Has this patient been hospitalized within the prior 30 days at any hospital? No Coverage Notice Reviewer: [id number] Sarah Larson Notice Issued Date-Time: 03/21/2020 8:55 Notice Type: Medicare Outpatient Observation Notice Notice Delivered To: Patient Relationship to Patient: Self Rn Hedis Name: Delivery Method: HAND - Hand Delivered Maris Days: Prior Verbal Notification: Recipient Understood Notice: Yes Recipient Signature: Yes Med Rec Note Co-signed by Attending: Coverage Notice Comment: FABIOLA explained, signed, given, copy placed in Last DP export: 03/25/20 11:24 a Patient Name: ZOHREH DOE Page 10289 at 1241 All edits/amendments must be made on the electronic document DICTATION DATE: 03/25/201239 PET CARE ASSISTANT: MODESTO 03/25/20 1240 RPT#: [id number] DC DATE: STATUS: ADM IN [facility] [address] [place] [address] END OF REPORT
--- NOTE | 2020-03-25 12:56 | NUR ---
714-RECIEVED AWAKE AND TOMAD-NZOIL-HPH TO CRANIAL INCISION-SANG SATURATED-REMOVED SAME-NOTED SMALL LESS <1CM OZZING SANG AT SUPERFICIAL INCISION-PRESSURE APPLIED TIME 10MIN-CESSATION NOTED-STERISTRIPS ASPPLIED AND DRY DRG REAPPLIED-PT AGITATED DUE TO BLOOD ON SKIN-COMPLETE AM CARE DONE 929-DAUGHTER AT [facility]-NOTED PT INTERMITTENT LUCID MOMENTS-THEN "FLIGHT OF IDEAS"-FREQUENT SUBJECT CHANGES-PT AT BEDSIDE-ASSISTED TO BEDSIDE CHAIR TOLERATED WELL 1030-DR MANN AT BEDSIDE-SPOKE WITH PT AND HECTOR REGARDING SURGERY AND PLANNED COURSE OF TREATMENT-CRANIAL DRG REMOVED AND AREA ON INCISION SHOWN TO DR MANN-LARGE AMOUNT OF SANG DRAINAGE ON DRG-[address] MANN AND TOLERATED WELL BY PT-DRY CRANIAL DRG APPLIED-PT REMAINS UP IN CHAIR 1200-100% OF MEAL TAKEN
--- NOTE | 2020-03-25 14:26 | MORECARE ---
CASE MANAGEMENT DISCHARGE SUMMARY PATIENT: ZOHREH DOE UNIT: [id number] ADM DATE: 03/21/20 AGE: 85 : 37 SEX: F [facility] AUTHOR: CHARISSE,DOC PHYSICIAN: REFERRING PHYSICIAN: VIPIN PLAZA MD DATE OF SERVICE: 03/25/20 Discharge Plan Patient Name: ZOHREH DOE Facility: [facility]:[place] : 1935 Planned Disposition: Home Anticipated Discharge Date: Discharge Date: Expected LOS: Initial Reviewer: [email or web address] Initial Review Date: 03/22/2020 Generated: 03/25/20 3:26 pm Comments DCP- Discharge Planning Updated by [email or web address]: Esthela Mercado on 03/25/20 11:[address] Patient Name: ZOHREH DOE Admission Status: ER Accout number: [id number] Admission Date: 03-21-2020 : 1935 Admission Diagnosis:DISORIENTATION, UNSPECIFIED Attending: VIPIN PLAZA Current LOS: 4 Anticipated DC Date: Planned Disposition: Home Primary Insurance: MEDICARE A & B Discharge Planning Comments: CM met with patient to complete initial dc planning assessment. CM educated patient on the CM role and verbal consent given by patient to complete assessment. Patient lives at home with family. Patient is independent. At discharge patient plans to return home and feels this is a safe discharge. CM discussed availability of home health, rehab services, and medical equipment. CEASAR signed for No Preference on HH. Patient denied known discharge needs at this time. CM will continue to follow and will assist as needed with dc plans/needs. Sash Maker: Esthela Mercado DCP- Discharge Planning Updated by [email or web address]: Hannah Larson on 03/22/20 12:[address] CM received results of walk test. She is 98% on room air at rest and 99% on room air with exertion. Patient does not qualify for home oxygen. DCPIA - Discharge Planning Initial Assessment Updated by [email or web address]: Esthela Mercado on 03/25/20 12:23 pm * Is the patient Alert and Oriented? Yes * How many steps to enter\exit or inside your home? * PCP Hemanth * Pharmacy [facility] * Preadmission Environment Home with Family * ADLs Independent * Other Equipment ROLLATOR, NEBULIZER, BSC, SC * List name and contact numbers for known caregivers / representatives who currently or will assist patient after discharge: GITA CAST - DAUGHTER- [phone] CHICA PHELPS - DAUGHTER- [phone] * Verbal permission to speak to the caregivers and representatives has been obtained from the patient. Yes * Community resources currently utilized None * Additional services required to return to the preadmission environment? No * Can the patient safely return to the preadmission environment? Yes * Has this patient been hospitalized within the prior 30 days at any hospital? No Coverage Notice Reviewer: [id number] Sarah Larson Notice Issued Date-Time: 03/21/2020 8:55 Notice Type: Medicare Outpatient Observation Notice Notice Delivered To: Patient Relationship to Patient: Self Test Consultant Name: Delivery Method: HAND - Hand Delivered Maris Days: Prior Verbal Notification: Recipient Understood Notice: Yes Recipient Signature: Yes Med Rec Note Co-signed by Attending: Coverage Notice Comment: FABIOLA explained, signed, given, copy placed in Last DP export: 03/25/20 11:41 a Patient Name: ZOHREH DOE Page 46854 at 1426 All edits/amendments must be made on the electronic document DICTATION DATE: 03/25/201425 RECEIVER: MODESTO 03/25/201425 RPT#: [id number] DC DATE: STATUS: ADM IN [facility] [address] [place] [address] END OF REPORT
--- NOTE | 2020-03-25 14:59 | NUR ---
TRANSFERRED TO [id number] WHEELCHAIR-DAUGHTER NOTIFIED OF TRANSFER-NOTED DISORIENTION NOTED-LAB AT BEDSIDE
--- NOTE | 2020-03-25 15:37 | NUR ---
SITTING UP IN CHAIR
--- NOTE | 2020-03-25 16:01 | NUR ---
Rehab Prescreening Consult recieved and the chart has been reviewed. 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 She has a qualifying acute rehab diagnosis when she is medically stable. PT evaluated today, but she has not been out of bed. Would reccommend an OT and ST eval. Rehab will follow and hopefully be able to accept early next week. Alba Ford RN Clinical Liaison, Rehab
--- NOTE | 2020-03-25 18:24 | NUR ---
1643 RECEIVED BEDSIDE REPORT FROM ARTURO Eng RN INTRODUCED MLLUISELF TO PATIENT
--- NOTE | 2020-03-25 18:25 | NUR ---
1800 ASSIST X 2 TO BSC VOIDED 400ML YELOW URINE. PATIENT REMAINS CONFUSED PATIENT THINKS SHE IS SOMEWHERE ELSE
--- NOTE | 2020-03-25 19:30 | NUR ---
REPORT REC'D AND CARE ASSUMED, REC'D PT SITTING UP IN CHAIR, AWAKE AND ALERT TO PERSON ONLY, O2 @ 2 LITERS VIA NC, RIGHT FOREARM PIV WITH 1/2NS @ 50CC/HR, MAEE, PT DISORIENTED TO TIME AND PLACE, DAUGHTER AT BS, PPP, CALL LIGHT AND BS TABLE IN REACH, VISIBLE TO NURSES STATION.
--- NOTE | 2020-03-25 20:00 | NUR ---
EVENING MEDS GIVEN EARLY, BP 174/86, DAUGHTER REMAINS AT BS, PT DENIES NEEDS.
--- NOTE | 2020-03-25 21:00 | NUR ---
PT ASSISTED TO BSC TO VOID, CALL LIGHT IN REACH.
--- NOTE | 2020-03-25 21:20 | NUR ---
PT ASSISTED BACK TO CHAIR, PT REPORTS PASSING FLATUS, BUT NO BM, VOIDED 200 CC CLEAR YELLOW URINE, PT THINKING SHE SEES FAMILY AT THE DESK, REORIENTED TO TIME AND PLACE, PULLING AT MONITORING EQUIPMENT, INSTRUCTED PT TO LEAVE MONITORING EQUIPMENT ON, VERBALIZES UNDERSTANDING.
--- NOTE | 2020-03-25 22:00 | NUR ---
EVENING EYE DROPS INSTILLED AND PT ASSISTED TO BED AT THIS TIME, PT TOLERATED WELL, REPOSITIONE IN BED FOR COMFORT, PT DENIES FURTHER NEEDS, SR UP X 2 , CALL LIGHT IN REACH, BED ALARM ON.
--- NOTE | 2020-03-25 22:45 | NUR ---
PT WANTING UP TO USE BATHROOM, ASSISTED UP TO BSC, PT CONCERNED ABOUT DRSG ON ABD, DRSG CDI, INFORMED PT THAT DRSG WAS OKAY, PT ASSISTED BACK TO BED WITHOUT DIFFICULTY, WILL CONT TO MONITOR FOR CHANGES.
[2020-03-26] VITALS (20 sets, daily range): BP systolic 126–196; BP diastolic 62–102
--- NOTE | 2020-03-26 00:30 | NUR ---
PT ATTEMPTING TO GET OOB, STATES " I NEED TO USE THE BATHROOM", ASSISTED UP TO BSC, GAIT STEADY, INTERMITTENT PERIODS OF CLARITY, BP ELEVATED, ASSISTED BACK TO BED, SR UP X 2, CALL LIGHT IN REACH, BED IN LOW POSITION, VISIBLE TO NURSES STATION.
--- NOTE | 2020-03-26 03:00 | NUR ---
REASSESSMENT COMPLETED, PT RESTING IN BED, EYES CLOSED, RESP EVEN AND UNLABORED, BP 164/85, SR UP X 2 , BED IN LOW POSITION, CALL LIGHT IN REACH
--- NOTE | 2020-03-26 05:15 | NUR ---
PT ASSISTED UP TO BSC TO VOID, VOIDED 350CC CLEAR YELLOW URINE, FRESH ICE WATER PROVIDED, PT STATES SHE FEELS LIKE SHE RAN FEVER, TEMP 98.0 @ THIS TIME, BP ELEVATED, PT ASSISTED TO REPOSITION FOR COMFORT ONCE BACK IN BED, DENIES FURTHER NEEDS, SR UP X 2, CALL LIGHT IN REACH, VISIBLE TO NURSES STATION, BED ALARM ON.
--- NOTE | 2020-03-26 18:39 | NUR ---
5768-DR MANN AT BEDSIDE-CRANIAL INCISION CHECKED -ABD INCISION CHECKED-NOTED GOOD MENTATION
--- NOTE | 2020-03-26 21:06 | NUR ---
RETURNED CALL TO PT DAUGHTERCHICA REGARDING PT BEING ANXIOUS. UPDATED REGARDING CURRENT STATUS, ALL QUESTIONS ANSWERED.
[2020-03-27] VITALS (21 sets, daily range): BP systolic 134–207; BP diastolic 56–91
--- NOTE | 2020-03-27 01:13 | NUR ---
ASSISTED PT TO BSC, VOIDED 350CC CLEAR YELLOW URINE. BACK TO BED WITHOUT INCIDENT, HR SR ON CM, BED LOW/ALARM ON, CALL LIGHT IN REACH.
--- NOTE | 2020-03-27 03:50 | NUR ---
REASSESSMENT PER FLOWSHEET, NO ACUTE CHANGES NOTED. PT AROUSES EASILY TO VOICE, SR WITH OCC PAC'S ON CM, DENIES PAIN OR ANY NEEDS, BED LOW-ALARM ON, CALL LIGHT IN REACH, CONT POC.
--- NOTE | 2020-03-27 05:55 | NUR ---
PT WEIGHT DOCUMENTED, PT AROUSES EASILY TO VOICE, DENIES ANY NEEDS AT THIS TIME. BED LOW, ALARM ON, CALL LIGHT IN REACH.
--- NOTE | 2020-03-27 13:23 | NUR ---
0715-ASSISTED PT TO BEDSIDE COMMOD-THEN TO CHAIR-AMBULATING EASILY 0800-DAUGHTER AT BEDSIDE-PT EASILY CONVERSES WITH SAME 0930-DR WHITMORE NOTIFIED OF NIBP-200/100 1030-DR WHITMORE AT BEDSIDE-STATUS REPORT GIVEN 1130-DR MANN AT BEDSIDE-PT AMBULATING WITH PT-DISCHARGE PLAN OUTLINED TO DAUGHTER BY DR MANN 1230-COMPLETE HEBICLENS BATH-CRANIAL DRESSING CHANGED-NO DRAINAGE NO INCISION INTACT ASSISTED TO BED-
--- NOTE | 2020-03-27 16:16 | NUR ---
1500 REPORT RECIEVED AND CARE ASSUMED OF PATIENT.. PT IS AWAKE AND APPEARS TO BE APPROPRIATE IN HER RESPONSES.. DAUGHTER IS AT THE BEDSIDE.. PT IN CHAIR,, 1530 DAUGHTER ASSISTED PT TO BSC.. 1540 PT VOIDED AND HAD SMALL FORMED BROWN STOOL IN BSC, ASSISTED BACK TO CHAIR 1600 PT CONTINUES IN CHAIR WATCHING TV REMAINS APPROPRIATE IN RESPONSES..
--- NOTE | 2020-03-27 17:52 | NUR ---
1700 DINNER SERVED AND METFORMAN GIVEN PO.. PT IS FEEDING SELF SITTING IN CHAIR AT THE BEDSIDE.. 1800 ASSISTED TO THE BSC VOIDED .. ASSISTED TO BED .. PT IS WITHOUT C/O AT THIS TIME
--- NOTE | 2020-03-27 19:15 | NUR ---
RESUMED CARE OF PT, ASSESSMENT PER FLOWSHEET. HR SR ON CM, PT DENIES ANY NEEDS, VSS
--- NOTE | 2020-03-27 23:40 | NUR ---
PT RESTING IN BED TALKING ON CELL PHONE TO SON, DENIES ANY NEEDS, CALL LIGHT IN REACH, ALARM ON.
[2020-03-28] VITALS: BP 178/71
[2020-03-28 01:00] VITALS: BP 170/69
--- NOTE | 2020-03-28 01:50 | NUR ---
PT RESTING IN BED WITH EYES CLOSED, BREATHING EVEN AND UNLABORED, CONT TO MONITOR.
[2020-03-28 02:00] VITALS: BP 176/69
[2020-03-28 03:00] VITALS: BP 168/71
[2020-03-28 04:00] VITALS: BP 167/60
[2020-03-28 04:22] LABS: HEMATOCRIT 35.7 % (36.0-48.0); HEMOGLOBIN 11.7 g/dL (12-16); LYMPHOCYTES 21.9 % (15-50); MCH 30.3 pg (26.0-34.0); MCHC 32.8 g/dL (31.0-37.0); MCV 92.5 fL (80.0-100.0); MEAN PLATELET VOLUME 8.8 fL (7.4-10.4); NEUTROPHILS 69.7 % (40-80); PLATELET COUNT 288 10x3/uL (130-400); RBC 3.86 10x6/uL (4.00-5.40); RDW 14.7 % (11.5-14.5); WBC 8.9 10x3/uL (4.8-10.8)
[2020-03-28 04:32] LABS: ANION GAP 8.4 mmol/L (8-16); CALCIUM 9.2 mg/dL (8.5-10.1); CREATININE - SERUM 1.1 mg/dL (0.6-1.3); POTASSIUM - SERUM 4.4 mmol/L (3.5-5.1)
--- NOTE | 2020-03-28 04:54 | NUR ---
ASSISTED PT TO BSC, VOIDED, PRN CLONIDINE 0.1MG ADMINISTERED PO PER MD ORDER FOR ELEVATED BP.
[2020-03-28 05:00] VITALS: BP 167/61
--- NOTE | 2020-03-28 07:05 | NUR ---
REPORT RECIEVED, SHIFT ASSESSMENT COMPLETE, PT IS ALERT AND ORIENTED, ON RA WITH 97% O2 SAT. ALL PPP, VSS, CALL LIGHT IN REACH
--- NOTE | 2020-03-28 09:52 | NUR ---
Nutrition follow-up: Pt receiving a consistent CHO diet with po intake 100% of most meals per nurse today. Labs reviewed; glucose under fair control Wt: 230# PO intake good at this time RDN following.
--- NOTE | 2020-03-28 11:34 | MORECARE ---
CASE MANAGEMENT DISCHARGE SUMMARY PATIENT: ZOHREH DOE UNIT: [id number] ADM DATE: 03/21/20 AGE: 85 : 37 SEX: F ROOM/BED: D.2301 AUTHOR: HI MCQUEEN PHYSICIAN: REFERRING PHYSICIAN: VIPIN PLAZA MD DATE OF SERVICE: 03/28/20 Discharge Plan Patient Name: ZOHREH DOE Facility: [facility]:[place] : 1935 Planned Disposition: Home Anticipated Discharge Date: Discharge Date: Expected LOS: Initial Reviewer: [email or web address] Initial Review Date: 03/22/2020 Generated: 03/28/20 12:33 pm Comments DCP- Discharge Planning Updated by [email or web address]: Esthela Mercado on 03/25/20 11:[address] Patient Name: ZOHREH DOE Admission Status: ER Accout number: [id number] Admission Date: 03-21-2020 : 1935 Admission Diagnosis:DISORIENTATION, UNSPECIFIED Attending: VIPIN PLAZA Current LOS: 4 Anticipated DC Date: Planned Disposition: Home Primary Insurance: MEDICARE A & B Discharge Planning Comments: CM met with patient to complete initial dc planning assessment. CM educated patient on the CM role and verbal consent given by patient to complete assessment. Patient lives at home with family. Patient is independent. At discharge patient plans to return home and feels this is a safe discharge. CM discussed availability of home health, rehab services, and medical equipment. CEASAR signed for No Preference on HH. Patient denied known discharge needs at this time. CM will continue to follow and will assist as needed with dc plans/needs. Chore Tender: Esthela Mercado DCP- Discharge Planning Updated by [id number]: Hannah Larson on 03/22/20 12:[address] CM received results of walk test. She is 98% on room air at rest and 99% on room air with exertion. Patient does not qualify for home oxygen. DCPIA - Discharge Planning Initial Assessment Updated by [id number]: Esthela Mercado on 03/25/20 12:23 pm * Is the patient Alert and Oriented? Yes * How many steps to enter\exit or inside your home? * PCP Hemanth * Pharmacy [facility] * Preadmission Environment Home with Family * ADLs Independent * Other Equipment ROLLATOR, NEBULIZER, BSC, SC * List name and contact numbers for known caregivers / representatives who currently or will assist patient after discharge: GITA CAST - DAUGHTER- [phone] CHICA PHELPS - DAUGHTER- [phone] * Verbal permission to speak to the caregivers and representatives has been obtained from the patient. Yes * Community resources currently utilized None * Additional services required to return to the preadmission environment? No * Can the patient safely return to the preadmission environment? Yes * Has this patient been hospitalized within the prior 30 days at any hospital? No External [facility]iders [facility] Next Contact Date: Service Request Date: Service Type: Resolution: Reviewer: Comments: Coverage Notice Reviewer: [id number] Sarah Larson Notice Issued Date-Time: 03/21/2020 8:55 Notice Type: Medicare Outpatient Observation Notice Notice Delivered To: Patient Relationship to Patient: Self Insecticide Sprayer Name: Delivery Method: HAND - Hand Delivered Maris Days: Prior Verbal Notification: Recipient Understood Notice: Yes Recipient Signature: Yes Med Rec Note Co-signed by Attending: Coverage Notice Comment: FABIOLA explained, signed, given, copy placed in MR Reviewer: [id number] Sarah Mercado Notice Issued Date-Time: 03/28/2020 11:31 Notice Type: Patient Choice Letter Notice Delivered To: Family Member Relationship to Patient: Daughter Insecticide Sprayer Name: CHICA PHELPS Delivery Method: PHONE - Phone Maris Days: Prior Verbal Notification: Recipient Understood Notice: Yes Recipient Signature: Med Rec Note Co-signed by Attending: Coverage Notice Comment: NO PREFERENCE IN Last DP export: 03/25/20 1:26 p Patient Name: ZOHREH DOE Page 94374 at 1134 All edits/amendments must be made on the electronic document DICTATION DATE: 03/28/20 113 REHEAT FURNACE OPERATOR: MODESTO 03/28/20 1133 RPT#: [id number] DC DATE: STATUS: ADM IN [facility] [address] [place] [address] END OF REPORT
[2020-03-28] MEDS ORDERED: LISINOPRIL10 MG PO (12:57)
--- NOTE | 2020-03-28 18:33 | MORECARE ---
CASE MANAGEMENT DISCHARGE SUMMARY PATIENT: ZOHREH DOE UNIT: [id number] ADM DATE: 03/21/20 AGE: 85 : 37 SEX: F ROOM/BED: D.2301 AUTHOR: CHARISSE,HI PHYSICIAN: REFERRING PHYSICIAN: VIPIN PLAZA MD DATE OF SERVICE: 03/28/20 Discharge Plan Patient Name: ZOHREH DOE Facility: [facility]:[place] : 1935 Planned Disposition: Home Anticipated Discharge Date: Discharge Date: 03/28/2020 Expected LOS: Initial Reviewer: [email or web address] Initial Review Date: 03/22/2020 Generated: 03/28/20 7:33 pm Comments DCP- Discharge Planning Updated by [email or web address]: Esthela Mercado on 03/28/20 5:[address] CM spoke with daughter and plan for [facility] for PT[facility]OT . [facility] will call daughter to set admit time and date. d/c IMM signed 03/28/20. CM will continue to follow and assist as needed with discharge planning / needs. DCP- Discharge Planning Updated by [email or web address]: Esthela Mercado on 03/25/20 11:[address] Patient Name: ZOHREH DOE Admission Status: ER Accout number: [id number] Admission Date: 03-21-2020 : 1935 Admission Diagnosis:DISORIENTATION, UNSPECIFIED Attending: VIPIN PLAZA Current LOS: 4 Anticipated DC Date: Planned Disposition: Home Primary Insurance: MEDICARE A & B Discharge Planning Comments: CM met with patient to complete initial dc planning assessment. CM educated patient on the CM role and verbal consent given by patient to complete assessment. Patient lives at home with family. Patient is independent. At discharge patient plans to return home and feels this is a safe discharge. CM discussed availability of home health, rehab services, and medical equipment. CEASAR signed for No Preference on HH. Patient denied known discharge needs at this time. CM will continue to follow and will assist as needed with dc plans/needs. Admissions Gate Attendant: Esthela Mercado DCP- Discharge Planning Updated by [email or web address]: Hannah Larson on 03/22/20 12:[address] CM received results of walk test. She is 98% on room air at rest and 99% on room air with exertion. Patient does not qualify for home oxygen. DCPIA - Discharge Planning Initial Assessment Updated by DESIREE: Esthela Mercado on 03/25/20 12:23 pm * Is the patient Alert and Oriented? Yes * How many steps to enter\exit or inside your home? * PCP Hemanth * Pharmacy [facility] * Preadmission Environment Home with Family * ADLs Independent * Other Equipment ROLLATOR, NEBULIZER, BSC, SC * List name and contact numbers for known caregivers / representatives who currently or will assist patient after discharge: GITA CAST - DAUGHTER- [phone] CHICA PHELPS - DAUGHTER- [phone] * Verbal permission to speak to the caregivers and representatives has been obtained from the patient. Yes * Community resources currently utilized None * Additional services required to return to the preadmission environment? No * Can the patient safely return to the preadmission environment? Yes * Has this patient been hospitalized within the prior 30 days at any hospital? No Coverage Notice Reviewer: [email or web address] Sarah Larson Notice Issued Date-Time: 03/21/2020 8:55 Notice Type: Medicare Outpatient Observation Notice Notice Delivered To: Patient Relationship to Patient: Self Sugar Coating Hand Name: Delivery Method: HAND - Hand Delivered Maris Days: Prior Verbal Notification: Recipient Understood Notice: Yes Recipient Signature: Yes Med Rec Note Co-signed by Attending: Coverage Notice Comment: HICKS explained, signed, given, copy placed in MR Reviewer: [id number] Sarah Mercado Notice Issued Date-Time: 03/25/2020 11:31 Notice Type: Patient Choice Letter Notice Delivered To: Family Member Relationship to Patient: Daughter Sugar Coating Hand Name: CHICA PHELPS Delivery Method: PHONE - Phone Maris Days: Prior Verbal Notification: Recipient Understood Notice: Yes Recipient Signature: Med Rec Note Co-signed by Attending: Coverage Notice Comment: NO PREFERENCE IN HH Reviewer: [email or web address] Sarah Mercado Notice Issued Date-Time: 03/28/2020 11:40 Notice Type: IM Discharge Notice Notice Delivered To: Patient Relationship to Patient: Daughter Sugar Coating Hand Name: CHICA PHELPS Delivery Method: HAND - Hand Delivered Maris Days: Prior Verbal Notification: Recipient Understood Notice: Yes Recipient Signature: Yes Med Rec Note Co-signed by Attending: Coverage Notice Comment: Last DP export: 03/28/20 10:34 a Patient Name: ZOHREH DOE Page 85731 at 1833 All edits/amendments must be made on the electronic document DICTATION DATE: 03/28/201832 DEWATERER OPERATOR: MODESTO 03/28/201832 RPT#: [id number] DC DATE:03/28/20 STATUS: DIS IN [facility] [address] [place] [address] END OF REPORT
== END 2020-03-28 13:00 | disposition home or self-care (01) | DRG 32 ==
LOC: D.ER 11:53 → D.M2 14:52 → OBSVTIME 15:01 → D.ICU 03-21 14:56 → D.M2 03-21 14:56 → D.SDCHOLD 03-22 11:50 → D.M2 03-22 12:04 → D.ICU 03-24 14:35 → D.CVICU 03-24 19:30 → D.ICU 03-25 14:50
PROVIDERS: Family Medicine; Neurological Surgery; ADMIT Family Medicine; ATTEND Family Medicine
PROC: 00160J6 Bypass Cerebral Ventricle to Peritoneal Cavity with Synthetic Substitute, Open Approach (ICD-10-PCS; principal; 2020-03-24 16:15)
DX: G93.0 Cerebral cysts (principal); G45.9 Transient cerebral ischemic attack, unspecified; E11.9 Type 2 diabetes mellitus without complications; I10 Essential (primary) hypertension

== ENCOUNTER 2020-05-15 20:16 | Inpatient (IN) | payer MEDICARE ==
[~2020-05-15] VITALS: Ht 167.6 cm; Wt 98.9 kg
[~2020-05-15 20:16] MED LIST changes: +CYANOCOBAL1000 MCG/4 IM; +LISINOPRIL10 MG PO; +MAXZIDE 75/501 TAB; -MAXZIDE 75/501 TAB PO
--- NOTE | 2020-05-15 20:24 | NUR ---
STATES SHE RECENTLY STARTED BUSPAR 5MG 3-4 DAYS AGO AND HAS HAD SEVERE ITCHING.
[2020-05-15 21:08] LABS: HEMATOCRIT 42.4 % (36.0-48.0); MCV 93.8 fL (80.0-100.0); MEAN PLATELET VOLUME 9.6 fL (7.4-10.4); PLATELET COUNT 175 10x3/uL (130-400); RBC 4.52 10x6/uL (4.00-5.40); RDW 15.4 % (11.5-14.5); WBC 28.2 10x3/uL (4.8-10.8)
[2020-05-15 21:17] LABS: CALC OSMOLALITY 281 mosm/kg (275-300); CALCIUM 9.8 mg/dL (8.5-10.1); CARBON DIOXIDE 29.5 mmol/L (21.0-32.0); CHLORIDE - SERUM 104 mmol/L (98-107); CREATININE - SERUM 1.3 mg/dL (0.6-1.3); POTASSIUM - SERUM 4.3 mmol/L (3.5-5.1); SODIUM 140 mmol/L (136-145); UREA NITROGEN 21 mg/dL (7-18); eGFR NON AFRICAN AMERICAN 41 mL/min (90-120)
[2020-05-15 21:20] LABS: INR 1.22 (0.85-1.17); PROTIME 15.3 SECONDS (11.6-15.0)
[2020-05-15 21:21] LABS: GLUCOSE 101 mg/dL (74-106)
[2020-05-15 21:32] LABS: ALBUMIN 3.1 g/dL (3.4-5.0); ALKALINE PHOSPHATASE 112 U/L (30-120); ALT (SGPT) 14 U/L (10-68); BILIRUBIN - TOTAL 0.19 mg/dL (0.2-1.3); LIPASE 61 U/L (73-393); MAGNESIUM - SERUM 1.6 mg/dL (1.8-2.4); PRO BNP 51 pg/mL (0-450); PROTEIN - SERUM 7.3 g/dL (6.4-8.2); THYROID STIMULATING HORMONE 2.93 uIU/mL (0.36-3.74)
[2020-05-15 21:33] LABS: TROPONIN-I < 0.017 ng/mL (0.000-0.060)
[2020-05-15 22:05] LABS: EOSINOPHILS 58 % (0-7); LYMPHOCYTES 13 % (15-50); MONOCYTES 5 % (2-11); NEUTROPHILS 23 % (40-80); PLATELET ESTIMATE NORMAL
[2020-05-15 22:17] LABS: BILIRUBIN NEGATIVE (NEGATIVE); GLUCOSE NEGATIVE (NEGATIVE); KETONE NEGATIVE (NEGATIVE); NITRITE NEGATIVE (NEGATIVE); UROBILINOGEN NORMAL (NORMAL)
[2020-05-15 23:00] VITALS: BP 135/45
--- NOTE | 2020-05-15 23:45 | NUR ---
RECEIVED PT FROM ER VIA STRETCHER. ALERT AND ORIENTED X4. FORGETFUL AT TIMES. ACCOMPANIED BY DAUGHTER. DENIES PAIN. PT IS RESERVE LT ARM DUE TO HX OF BREAST CA WITH MASTECTOMY. 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 V/S STABLE. NS BOLUS FINISHING. DENIES NAUSEA. STATES SHE HAS HAD DIARRHEA. SPECIMEN HAT IN TOILET FOR STOOL COLLECTION. GEN WEAKNESS NOTED. SR ELEVATED X2. CL IN REACH.
[2020-05-16 01:17] VITALS: BMI 35.2
--- NOTE | 2020-05-16 06:00 | NUR ---
HAS HAD NO N/V/D SINCE ADMISSION. DRINKING WATER AT THIS TIME. NO DISTRESS. CL IN REACH.
[2020-05-16 09:10] VITALS: BP 140/56
[2020-05-16 11:11] LABS: BASOPHILS 0.1 % (0-2); EOSINOPHILS 51.1 % (0-7); HEMATOCRIT 40.3 % (36.0-48.0); HEMOGLOBIN 13.2 g/dL (12-16); IMMATURE GRANULOCYTES 0.4 % (0-5); LYMPHOCYTES 14.3 % (15-50); MCH 30.6 pg (26.0-34.0); MCHC 32.8 g/dL (31.0-37.0); MCV 93.5 fL (80.0-100.0); MEAN PLATELET VOLUME 9.2 fL (7.4-10.4); MONOCYTES 4.6 % (2-11); NEUTROPHILS 29.5 % (40-80); PLATELET COUNT 208 10x3/uL (130-400); RBC 4.31 10x6/uL (4.00-5.40); RDW 15.5 % (11.5-14.5); WBC 21.8 10x3/uL (4.8-10.8)
[2020-05-16 11:54] VITALS: BP 114/44
--- NOTE | 2020-05-16 12:08 | NUR ---
MORE ORDERS PLACED FOR STOOL SAMPLE. PATIENT NOT HAVING STOOLS SO UNABLE TO OBTAIN AT THIS TIME.
[2020-05-16 13:34] VITALS: Ht 167.6 cm; Wt 98.9 kg
[2020-05-16 16:22] VITALS: BP 115/44
--- NOTE | 2020-05-16 18:45 | NUR ---
PATIENT STOOL SAMPLE COLLECTED AND SENT TO LAB. PATIENT IN BED WITH IV INTACT. NO COMPLAINTS. FAMILY AT BEDSIDE. CALL LIGHT WITHIN REACH.
[2020-05-16 20:00] VITALS: BP 146/49
[2020-05-17] VITALS: BP 134/44
--- NOTE | 2020-05-17 03:12 | NUR ---
ALERT AND AWARE ABLE TO VOICE NEEDS AND WANTS TO STAFF. FAMILY AT BEDSIDE. IV TO RIGHT UPPER ARM INTACT. WATER AND CALL LIGHT IN REACH AT BEDSIDE. RESTING IN BED WITH CALLIGHT IN REACH. NO NEEDS , NO DISTRESS.
[2020-05-17 04:00] VITALS: BP 106/55
[2020-05-17 06:20] LABS: ANION GAP 12.3 mmol/L (8-16); CALCIUM 8.3 mg/dL (8.5-10.1); CARBON DIOXIDE 26.2 mmol/L (21.0-32.0); CREATININE - SERUM 1.1 mg/dL (0.6-1.3)
[2020-05-17 06:23] LABS: HEMATOCRIT 37.9 % (36.0-48.0); HEMOGLOBIN 12.2 g/dL (12-16); MCHC 32.2 g/dL (31.0-37.0); MCV 93.1 fL (80.0-100.0); MEAN PLATELET VOLUME 9.5 fL (7.4-10.4); PLATELET COUNT 203 10x3/uL (130-400); RBC 4.07 10x6/uL (4.00-5.40); RDW 15.6 % (11.5-14.5)
[2020-05-17 06:25] LABS: WBC 14.2 10x3/uL (4.8-10.8)
[2020-05-17 06:28] LABS: POTASSIUM - SERUM 3.5 mmol/L (3.5-5.1)
[2020-05-17 08:00] VITALS: BP 127/57
--- NOTE | 2020-05-17 08:00 | NUR ---
PATIENT IN BED WITH IV INTACT. NO COMPLAINTS OR SIGNS OF DISTRESS. FAMILY AT BEDSIDE. CALL LIGHT WITHIN REACH.
[2020-05-17 08:03] LABS: EOSINOPHILS 56 % (0-7); LYMPHOCYTES 9 % (15-50); MONOCYTES 3 % (2-11); NEUTROPHILS 24 % (40-80); PLATELET ESTIMATE NORMAL
[2020-05-17] MEDS ORDERED: FLAGYL500 MG PO (08:09)
--- NOTE | 2020-05-17 10:44 | MORECARE ---
CASE MANAGEMENT DISCHARGE SUMMARY PATIENT: ZOHREH DOE UNIT: [id number] ADM DATE: 05/16/20 AGE: 85 : 37 SEX: F ROOM/BED: D.2210 AUTHOR: HI MCQUEEN PHYSICIAN: REFERRING PHYSICIAN: JAJA ROLON MD DATE OF SERVICE: 05/17/20 Discharge Plan Patient Name: ZOHREH DOE Facility: [facility]:[place] : 1935 Planned Disposition: Home with Home Health Anticipated Discharge Date: Discharge Date: Expected LOS: Initial Reviewer: [email or web address] Initial Review Date: 05/15/2020 Generated: 05/17/20 11:43 am Patient Name: ZOHREH DOE Page 82821 at 1044 All edits/amendments must be made on the electronic document DICTATION DATE: 05/17/20 1043 CRUISE STAFF MEMBER: MODESTO 05/17/20 1043 RPT#: [id number] DC DATE: STATUS: ADM IN [facility] [address] [place] [address] END OF REPORT
--- NOTE | 2020-05-17 10:52 | MORECARE ---
CASE MANAGEMENT DISCHARGE SUMMARY PATIENT: ZOHREH DOE UNIT: [id number] ADM DATE: 05/16/20 AGE: 85 : 37 SEX: F ROOM/BED: D.2210 AUTHOR: HI MCQUEEN PHYSICIAN: REFERRING PHYSICIAN: JAJA ROLON MD DATE OF SERVICE: 05/17/20 Discharge Plan Patient Name: ZOHREH DOE Facility: [facility]:[place] : 1935 Planned Disposition: Home with Home Health Anticipated Discharge Date: Discharge Date: Expected LOS: Initial Reviewer: [email or web address] Initial Review Date: 05/15/2020 Generated: 05/17/20 11:51 am Comments DCP- Discharge Planning Updated by [email or web address]: Jossy Anguiano on 05/17/20 9:[address] Patient Name: ZOHREH DOE Admission Status: ER Accout number: [id number] Admission Date: 05-16-2020 : 1935 Admission Diagnosis: Attending: JAJA ROLON Current LOS: 1 Anticipated DC Date: Planned Disposition: Home with Home Health Primary Insurance: MEDICARE A & B Discharge Planning Comments: CM met with patient to complete initial dc planning assessment. CM educated patient on the CM role and verbal consent given by patient to complete assessment. Patient lives at home with her adult daughter where she is independent with the help of her daughter. At discharge patient plans to return and feels this is a safe discharge. CM discussed availability of home health, rehab services, and medical equipment. Patient has a cane, walker, BSC, Shower chair at home. Dr Rolon would like her to have home health, patient asked me to call her daughter and find out what company to use. I have called and left a message for the daughter to call me so I can set that up. Patient denied known discharge needs at this time. CM will continue to follow and will assist as needed with dc plans/needs. Plasma Processing Centrifuge Operator: Jossy Anguiano DCPIA - Discharge Planning Initial Assessment Updated by [email or web address]: Jossy Anguiano on 05/17/20 10:44 am * Is the patient Alert and Oriented? Yes * How many steps to enter\exit or inside your home? * PCP MELA * Pharmacy [facility] [address] * Preadmission Environment Home with Family * ADLs Independent * Equipment Bedside Commode Cane Rolling Walker Shower Chair Walker * List name and contact numbers for known caregivers / representatives who currently or will assist patient after discharge: GITA CAST ( DAUGHTER) [phone] * Verbal permission to speak to the caregivers and representatives has been obtained from the patient. N/A * Community resources currently utilized [employer] * Please name any agencies selected above. DAUGHTER IS THE REFERRAL AND INFORMATION AIDE * Additional services required to return to the preadmission environment? Yes * Can the patient safely return to the preadmission environment? Yes * Has this patient been hospitalized within the prior 30 days at any hospital? No Last DP export: 05/17/20 9:44 a Patient Name: ZOHREH DOE Page 34845 at 1052 All edits/amendments must be made on the electronic document DICTATION DATE: 05/17/20 1051 JANITORIAL ASSISTANT: MODESTO 05/17/20 1051 RPT#: [id number] DC DATE: STATUS: ADM IN [facility] [address] [place] [address] END OF REPORT
--- NOTE | 2020-05-17 11:57 | MORECARE ---
CASE MANAGEMENT DISCHARGE SUMMARY PATIENT: ZOHREH DOE UNIT: [id number] ADM DATE: 05/16/20 AGE: 85 : 37 SEX: F ROOM/BED: D.2210 AUTHOR: HI MCQUEEN PHYSICIAN: REFERRING PHYSICIAN: JAJA ROLON MD DATE OF SERVICE: 05/17/20 Discharge Plan Patient Name: ZOHREH DOE Facility: [facility]:[place] : 1935 Planned Disposition: Home with Home Health Anticipated Discharge Date: Discharge Date: Expected LOS: Initial Reviewer: [email or web address] Initial Review Date: 05/15/2020 Generated: 05/17/20 12:56 pm Comments DCP- Discharge Planning Updated by [email or web address]: Jossy Anguiano on 05/17/20 10:[address] DAUGHTER AT BEDSIDE STATED THAT THEY HAVE HAD [facility] IN THE PAST AND WOULD LIKE THEM AGAIN, CEASAR SIGNED. REFERRAL SENT TO [facility] NOTIFIED. CM TO FOLLOW DCP- Discharge Planning Updated by [id number]: Jossy Anguiano on 05/17/20 9:[address] Patient Name: ZOHREH DOE Admission Status: ER Accout number: [id number] Admission Date: 05-16-2020 : 1935 Admission Diagnosis: Attending: JAJA ROLON Current LOS: 1 Anticipated DC Date: Planned Disposition: Home with Home Health Primary Insurance: MEDICARE A & B Discharge Planning Comments: CM met with patient to complete initial dc planning assessment. CM educated patient on the CM role and verbal consent given by patient to complete assessment. Patient lives at home with her adult daughter where she is independent with the help of her daughter. At discharge patient plans to return and feels this is a safe discharge. CM discussed availability of home health, rehab services, and medical equipment. Patient has a cane, walker, BSC, Shower chair at home. Dr Rolon would like her to have home health, patient asked me to call her daughter and find out what company to use. I have called and left a message for the daughter to call me so I can set that up. Patient denied known discharge needs at this time. CM will continue to follow and will assist as needed with dc plans/needs. Cotton Picker: Jossy Anguiano DCPIA - Discharge Planning Initial Assessment Updated by [email or web address]: Jossy Anguiano on 05/17/20 10:44 am * Is the patient Alert and Oriented? Yes * How many steps to enter\exit or inside your home? * PCP MELA * Pharmacy [facility] [address] * Preadmission Environment Home with Family * ADLs Independent * Equipment Bedside Commode Cane Rolling Walker Shower Chair Walker * List name and contact numbers for known caregivers / representatives who currently or will assist patient after discharge: GITA CAST ( DAUGHTER) [phone] * Verbal permission to speak to the caregivers and representatives has been obtained from the patient. N/A * Community resources currently utilized Advant[employer] Program * Please name any agencies selected above. DAUGHTER IS THE GRILL ASSOCIATE * Additional services required to return to the preadmission environment? Yes * Can the patient safely return to the preadmission environment? Yes * Has this patient been hospitalized within the prior 30 days at any hospital? No External [facility]iders [facility] Next Contact Date: Service Request Date: Service Type: Resolution: Reviewer: Comments: Last DP export: 05/17/20 9:52 a Patient Name: ZOHREH DOE Page 52880 at 1157 All edits/amendments must be made on the electronic document DICTATION DATE: 05/17/20 1156 FIXER SUPERVISOR: MODESTO 05/17/20 1156 RPT#: [id number] DC DATE: STATUS: ADM IN [facility] [address] [place] [address] END OF REPORT
--- NOTE | 2020-05-17 12:45 | NUR ---
PATIENT RECIEVED DC INSTRUCTIONS. VERBALIZED UNDERSTANDING. NO QUESTIONS AT THIS TIME. EXPLAINED TO FERMENTATION MANAGER MED AT PHARMACY. VERBALIZED UNDERSTANDING. IV REMOVED WITH CATH TIP INTACT. DAUGHTER AT SIDE. ESCORTED PATIENT OUT OF BUILDING WITH PERSONAL BELONGINGS TO PRIVATE VEHICLE VIA WC.
--- NOTE | 2020-05-17 13:53 | MORECARE ---
CASE MANAGEMENT DISCHARGE SUMMARY PATIENT: ZOHREH DOE UNIT: [id number] ADM DATE: 05/16/20 AGE: 85 : 37 SEX: F ROOM/BED: D.2210 AUTHOR: HI MCQUEEN PHYSICIAN: REFERRING PHYSICIAN: JAJA ROLON MD DATE OF SERVICE: 05/17/20 Discharge Plan Patient Name: ZOHREH DOE Facility: [facility]:[place] : 1935 Planned Disposition: Home with Home Health Anticipated Discharge Date: Discharge Date: Expected LOS: Initial Reviewer: [email or web address] Initial Review Date: 05/15/2020 Generated: 05/17/20 2:53 pm Comments DCP- Discharge Planning Updated by [email or web address]: Jossy Anguiano on 05/17/20 10:[address] DAUGHTER AT BEDSIDE STATED THAT THEY HAVE HAD [facility] IN THE PAST AND WOULD LIKE THEM AGAIN, CEASAR SIGNED. REFERRAL SENT TO [facility] NOTIFIED. CM TO FOLLOW DCP- Discharge Planning Updated by [email or web address]: Jossy Anguiano on 05/17/20 9:[address] Patient Name: ZOHREH DOE Admission Status: ER Accout number: [id number] Admission Date: 05-16-2020 : 1935 Admission Diagnosis: Attending: JAJA ROLON Current LOS: 1 Anticipated DC Date: Planned Disposition: Home with Home Health Primary Insurance: MEDICARE A & B Discharge Planning Comments: CM met with patient to complete initial dc planning assessment. CM educated patient on the CM role and verbal consent given by patient to complete assessment. Patient lives at home with her adult daughter where she is independent with the help of her daughter. At discharge patient plans to return and feels this is a safe discharge. CM discussed availability of home health, rehab services, and medical equipment. Patient has a cane, walker, BSC, Shower chair at home. Dr Rolon would like her to have home health, patient asked me to call her daughter and find out what company to use. I have called and left a message for the daughter to call me so I can set that up. Patient denied known discharge needs at this time. CM will continue to follow and will assist as needed with dc plans/needs. Positive Printer Operator: Jossy Anguiano DCPIA - Discharge Planning Initial Assessment Updated by [email or web address]: Jossy Anguiano on 05/17/20 10:44 am * Is the patient Alert and Oriented? Yes * How many steps to enter\exit or inside your home? * PCP MELA * Pharmacy [facility] [address] * Preadmission Environment Home with Family * ADLs Independent * Equipment Bedside Commode Cane Rolling Walker Shower Chair Walker * List name and contact numbers for known caregivers / representatives who currently or will assist patient after discharge: GITA CAST ( DAUGHTER) [phone] * Verbal permission to speak to the caregivers and representatives has been obtained from the patient. N/A * Community resources currently utilized Advant[employer] Program * Please name any agencies selected above. DAUGHTER IS THE BI MANAGER * Additional services required to return to the preadmission environment? Yes * Can the patient safely return to the preadmission environment? Yes * Has this patient been hospitalized within the prior 30 days at any hospital? No Coverage Notice Reviewer: [id number] - Jossy Anguiano Notice Issued Date-Time: 05/17/2020 10:40 Notice Type: Patient Choice Letter Notice Delivered To: Patient Relationship to Patient: Hand Assembler Name: Delivery Method: HAND - Hand Delivered Maris Days: Prior Verbal Notification: Recipient Understood Notice: Yes Recipient Signature: Yes Med Rec Note Co-signed by Attending: Coverage Notice Comment: CEASAR FOR [facility] Last DP export: 05/17/20 10:57 a Patient Name: ZOHREH DOE Page 33616 at 1353 All edits/amendments must be made on the electronic document DICTATION DATE: 05/17/20 1353 BIOMATHEMATICIAN: MODESTO 05/17/20 1353 RPT#: [id number] DC DATE: STATUS: ADM IN [facility] [address] [place] [address] END OF REPORT
--- NOTE | 2020-05-17 16:09 | MORECARE ---
CASE MANAGEMENT DISCHARGE SUMMARY PATIENT: ZOHREH DOE UNIT: [id number] ADM DATE: 05/16/20 AGE: 85 : 37 SEX: F ROOM/BED: D.2210 AUTHOR: HI MCQUEEN PHYSICIAN: REFERRING PHYSICIAN: JAJA ROLON MD DATE OF SERVICE: 05/17/20 Discharge Plan Patient Name: ZOHREH DOE Facility: [facility]:[place] : 1935 Planned Disposition: Home with Home Health Anticipated Discharge Date: Discharge Date: 05/17/2020 Expected LOS: Initial Reviewer: [email or web address] Initial Review Date: 05/15/2020 Generated: 05/17/20 5:08 pm Comments DCP- Discharge Planning Updated by [email or web address]: Jossy Anguiano on 05/17/20 10:[address] DAUGHTER AT BEDSIDE STATED THAT THEY HAVE HAD [facility] IN THE PAST AND WOULD LIKE THEM AGAIN, CEASAR SIGNED. REFERRAL SENT TO [facility] NOTIFIED. CM TO FOLLOW DCP- Discharge Planning Updated by [id number]: Jossy Anguiano on 05/17/20 9:[address] Patient Name: ZOHREH DOE Admission Status: ER Accout number: [id number] Admission Date: 05-16-2020 : 1935 Admission Diagnosis: Attending: JAJA ROLON Current LOS: 1 Anticipated DC Date: Planned Disposition: Home with Home Health Primary Insurance: MEDICARE A & B Discharge Planning Comments: CM met with patient to complete initial dc planning assessment. CM educated patient on the CM role and verbal consent given by patient to complete assessment. Patient lives at home with her adult daughter where she is independent with the help of her daughter. At discharge patient plans to return and feels this is a safe discharge. CM discussed availability of home health, rehab services, and medical equipment. Patient has a cane, walker, BSC, Shower chair at home. Dr Rolon would like her to have home health, patient asked me to call her daughter and find out what company to use. I have called and left a message for the daughter to call me so I can set that up. Patient denied known discharge needs at this time. CM will continue to follow and will assist as needed with dc plans/needs. Rda: Jossy Anguiano DCPIA - Discharge Planning Initial Assessment Updated by [email or web address]: Jossy Anguiano on 05/17/20 10:44 am * Is the patient Alert and Oriented? Yes * How many steps to enter\exit or inside your home? * PCP MELA * Pharmacy [facility] [address] * Preadmission Environment Home with Family * ADLs Independent * Equipment Bedside Commode Cane Rolling Walker Shower Chair Walker * List name and contact numbers for known caregivers / representatives who currently or will assist patient after discharge: GITA CAST ( DAUGHTER) [phone] * Verbal permission to speak to the caregivers and representatives has been obtained from the patient. N/A * Community resources currently utilized Ad[employer] Program * Please name any agencies selected above. DAUGHTER IS THE SURGERY AID * Additional services required to return to the preadmission environment? Yes * Can the patient safely return to the preadmission environment? Yes * Has this patient been hospitalized within the prior 30 days at any hospital? No Coverage Notice Reviewer: [id number] - Jossy Anguiano Notice Issued Date-Time: 05/17/2020 10:40 Notice Type: Patient Choice Letter Notice Delivered To: Patient Relationship to Patient: Curriculum Developer Name: Delivery Method: HAND - Hand Delivered Maris Days: Prior Verbal Notification: Recipient Understood Notice: Yes Recipient Signature: Yes Med Rec Note Co-signed by Attending: Coverage Notice Comment: [facility] FOR [facility] Last DP export: 05/17/20 12:53 p Patient Name: ZOHREH DOE Page 80669 at 1609 All edits/amendments must be made on the electronic document DICTATION DATE: 05/17/201607 LABEL PRINTER: MODESTO 05/17/20 1608 RPT#: [id number] DC DATE:05/17/20 STATUS: DIS IN [facility] [address] [place] [address] END OF REPORT
== END 2020-05-17 12:45 | disposition home health service (06) | DRG 392 ==
LOC: D.ER 20:16 → D.MS 22:33 → OBSVTIME 22:33 → D.ER 22:33 → OBSVTIME 05-16 15:08 → D.MS 05-16 15:08
PROVIDERS: Family Medicine; ADMIT Family Medicine; ATTEND Family Medicine
DX: K52.9 Noninfective gastroenteritis and colitis, unspecified (principal); R11.2 Nausea with vomiting, unspecified; R19.7 Diarrhea, unspecified; E11.9 Type 2 diabetes mellitus without complications; I10 Essential (primary) hypertension; J44.9 Chronic obstructive pulmonary disease, unspecified; Z98.2 Presence of cerebrospinal fluid drainage device